=== PATIENT | female | born 1935 | race Caucasian/White ===

== ENCOUNTER 2018-07-30 09:50 | Outpatient (REF) | payer OTHER, SELFPAY ==
[2018-07-30 19:57] LABS: Anion Gap 8.8 mmol/L (3-11); BUN 36 mg/dL (7-18); CO2 28.2 mmol/L (21.0-32.0); CREATININE 1.26 mg/dL (0.55-1.02); Calcium 9.2 mg/dL (8.5-10.1); Chloride 103 mmol/L (98-107); Estimated GFR 40.76 (mL/min/1.73m2); Glucose 108 mg/dL (70-100); Potassium 3.7 mmol/L (3.5-5.1); Sodium 140 mmol/L (136-145); TSH 0.03 uIU/mL (0.358-3.74)
== END 2018-07-30 10:10 ==
LOC: NCHCN 09:50
PROVIDERS: PCP Physician Assistant Medical; Visit Provider Physician Assistant Medical
DX: I10 Essential (primary) hypertension (principal); E03.9 Hypothyroidism, unspecified
CPT/HCPCS: 80048; 84443

== ENCOUNTER 2018-09-02 10:55 | Outpatient (REF) | payer OTHER, SELFPAY ==
[2018-09-02 21:09] LABS: BUN 27 mg/dL (7-18); CREATININE 1.18 mg/dL (0.55-1.02); Calcium 9.6 mg/dL (8.5-10.1); Chloride 102 mmol/L (98-107); Estimated GFR 43.96 (mL/min/1.73m2); Glucose 91 mg/dL (70-100); Sodium 141 mmol/L (136-145); TSH 0.07 uIU/mL (0.358-3.74)
== END 2018-09-02 11:15 ==
LOC: NCHCN 10:55
PROVIDERS: PCP Physician Assistant Medical; Visit Provider Physician Assistant Medical
DX: E03.9 Hypothyroidism, unspecified (principal); N18.3 Chronic kidney disease, stage 3 (moderate)
CPT/HCPCS: 80048; 84443

== ENCOUNTER 2018-10-26 12:07 | Outpatient (REF) | payer OTHER, SELFPAY | END 2018-10-26 12:27 | LOC: NCHCN 12:07 | PROVIDERS: PCP Physician Assistant Medical; Visit Provider Physician Assistant Medical | DX: E03.9 Hypothyroidism, unspecified (principal) | CPT/HCPCS: 84443 ==

== ENCOUNTER 2019-08-30 12:29 | Outpatient (REF) | payer OTHER, SELFPAY ==
[2019-08-30 19:42] LABS: HCT 41.7 % (36.0-46.0); HGB 13.9 g/dL (12.0-15.5); Mean Corp. HGB Concentration 33.3 g/dL (32.0-36.0); Mean Corpuscular Hemoglobin 31.4 pg (27.0-33.0); Mean Corpuscular Volume 94.3 fL (80-95); Mean Platelet Volume 10.4 fL (8.0-11.0); Platelet Count 524 x1000/uL (130-400); RBC 4.42 m/cumm (4.00-5.20); RBC Distribution Width 14.7 % (11.7-14.6); White Blood Cell Count 10.77 k/cumm (4.4-10.8)
[2019-08-30 20:06] LABS: Creatine Kinase 34 U/L (26-192); Potassium 4.4 mmol/L (3.5-5.1); TSH 7.03 uIU/mL (0.36-3.74)
== END 2019-08-30 12:49 ==
LOC: NCHCN 12:29
PROVIDERS: PCP Physician Assistant Medical; Visit Provider Internal Medicine
DX: I10 Essential (primary) hypertension (principal); N18.3 Chronic kidney disease, stage 3 (moderate); K21.9 Gastro-esophageal reflux disease without esophagitis; M06.9 Rheumatoid arthritis, unspecified
CPT/HCPCS: 82550; 85027; 84132; 84443

== ENCOUNTER 2019-09-23 10:18 | Outpatient (CLI) | payer OTHER, SELFPAY ==
[2019-09-23 10:39] VITALS: BP 130/80; PULSE 78; RESP 18; TEMP 37; O2SAT 99
[2019-09-23 11:26] VITALS: PULSE 81; O2SAT 99
[2019-09-23] MEDS: Lidocaine 2% Pres-Free 5 ML VIAL IJ (11:31)
[2019-09-23] MEDS: methylPREDNISolone ACETATE 40 MG/ML VIAL IJ (11:31)
--- NOTE | 2019-09-23 12:32 | PDOC.PAIN_ITS ---
Pain Clinic Procedure Note Procedure Note Procedure Note: Right Quadratus Lumborum MUSCLE INJECTION PROCEDURE NOTE Date of Service: September 23, 2019 Patient: YOGESH HAYES Provider: Alber Aleman DO, MPH Pre-operative diagnosis: Muscle pain Post-operative diagnosis: Same COMMENTS: I reviewed Ms. Hendrix's recent note. YOGESH HAYES has been referred to the [facility] for an ultrasound guided RIGHT Quadratus Lumborum muscle injection. YOGESH was interviewed and the medical record reviewed. There were no medical, pharmacologic, radiographic or other structural contraindications to attempting a right Quadratus Lumborum muscle injection. The benefits, risks, and alternative treatments of the procedure were reviewed with YOGESH, and her voiced concerns were addressed. Once I was assured the she was completely informed about the procedure and gave informed consent, the printed consent form was signed. Standard time-out procedure was performed. YOGESH was placed in the prone position on the fluoroscopy table and automated blood pressure cuff and pulse oximeter applied. With the patient in the prone position, the posterior lumbar spine is identified by palpation. A 22G 3.5 needle was placed into the right Quadratus Lumborum muscle. Several passes were made through the muscle and 3 cc of 2% Lidocaine and 40 mg of Depomedrol was injected into the muscle. The needle was then flushed with 1 mL of preservative-free lidocaine. The needle was then removed without difficulty. The injection site was then cleaned and a bandage was placed. Lupe vital signs were stable throughout the procedure and were as recorded in the docflowsheet by the nursing staff. If given, dosages of intravenous drugs for anxiolysis and analgesia were documented in MAR. Follow up plans and appointments were discussed with the YOGESH. Post procedure instruction was given as documented in nursing documentation and having met discharge criteria, YOGESH was discharged from the [facility]. COMMENTS: No complications. F/U with our office as needed. I personally performed this entire procedure. Alber Aleman DO, MPH [facility]-subspecialty board certification in Pain Medicine Attending Physician-Pain Management
== END 2019-09-23 10:38 ==
PROVIDERS: PCP Internal Medicine; Visit Provider Preventive Medicine Occupational Medicine
DX: M79.18 Myalgia, other site (principal)
CPT/HCPCS: 20552; J1030

== ENCOUNTER 2019-11-22 14:30 | Outpatient (REF) | payer OTHER, SELFPAY ==
[2019-11-22 19:47] LABS: FREE T4 1.08 ng/dL (0.76-1.46); TSH 3.55 uIU/mL (0.36-3.74)
== END 2019-11-22 14:50 ==
LOC: NCHCN 14:30
PROVIDERS: PCP Internal Medicine; Visit Provider Internal Medicine
DX: E03.9 Hypothyroidism, unspecified (principal)
CPT/HCPCS: 84439; 84443

== ENCOUNTER → 2021-03-28 09:52 | Outpatient (BNVA) | payer OTHER, SELFPAY | PROVIDERS: PCP Internal Medicine; Referring Provider Internal Medicine; Visit Provider Psychiatry & Neurology Neurology | DX: G20 Parkinson's disease (principal); R44.0 Auditory hallucinations; I12.9 Hypertensive chronic kidney disease with stage 1 through stage 4 chronic kidney disease, or unspecified chronic kidney disease; N18.9 Chronic kidney disease, unspecified; Z86.73 Personal history of transient ischemic attack (TIA), and cerebral infarction without residual deficits | CPT/HCPCS: 99205 ==

== ENCOUNTER → 2021-06-27 10:01 | Outpatient (BNVA) | payer MEDICARE, SELFPAY | PROVIDERS: PCP Internal Medicine; Referring Provider Internal Medicine; Visit Provider Psychiatry & Neurology Neurology | DX: G20 Parkinson's disease (principal); K59.00 Constipation, unspecified; R44.0 Auditory hallucinations; F39 Unspecified mood [affective] disorder; I12.9 Hypertensive chronic kidney disease with stage 1 through stage 4 chronic kidney disease, or unspecified chronic kidney disease; N18.9 Chronic kidney disease, unspecified | CPT/HCPCS: 99214 ==

== ENCOUNTER → 2021-09-19 09:53 | Outpatient (BNVA) | payer MEDICARE, SELFPAY | PROVIDERS: PCP Internal Medicine; Referring Provider Internal Medicine; Visit Provider Psychiatry & Neurology Neurology | DX: G20 Parkinson's disease (principal); I63.9 Cerebral infarction, unspecified; F41.9 Anxiety disorder, unspecified; R41.3 Other amnesia; I12.9 Hypertensive chronic kidney disease with stage 1 through stage 4 chronic kidney disease, or unspecified chronic kidney disease; N18.9 Chronic kidney disease, unspecified | CPT/HCPCS: 99214 ==

== ENCOUNTER 2021-11-29 18:36 | Outpatient (REF) | payer MEDICARE, SELFPAY ==
--- NOTE | 2021-11-29 12:00 | SKI_PTH ---
PATIENT: Astrid Baker LOC: [facility] U#:[id number] AGE/SX: 86/F ROOM: RE11/29/[address]: Anshul Branch : [id number] BED: DIS: 11/29/2021 SPEC #: [id number] RECD: 11/29/21 18:38 STATUS: BRIDGET REUmm #: [id number] DAVIDA: 11/29/21 12:[address]: Anshul Branch DEPT: Surgical Specimen RECD BY: Shelby Nascimento Tissues: 1 - SKIN BIOPSY(SHAVE/PUNCH) Procedures: SKIN LEVEL 4 Comments: [id number]
--- OUTSIDE RECORDS SUMMARY | 2021-11-29 18:39 | XMS_ITS ---
:1935 Author Care Team Providers Name Role Phone KOBY JONES MD Primary Care Provider [phone] TOM SILVERIO MD General Surgeon [phone] Allergies Code Code System Name Reaction Severity Status Onset 222760 RxNorm Celebrex ? ? Active ? 095532 RxNorm Lipitor ? ? Active ? 7804 RxNorm Oxycodone ? ? Active ? 238464 RxNorm Oxycontin ? ? Active ? 68973 RxNorm Pravastatin ? ? Active ? Medications Name Status Start Date Stop Date ? ? acetaminophen 325 mg tablet Completed 07/03/202106/07 Take 650 mg twice a day by oral route. alprazolam 0.5 mg tablet Active ? Not blanche ilable Antacid Anti-Gas 200 mg-200 mg-20 mg/5 mL oral suspension Comple radha 02/09/2019 08/03/2019 Take 30 mL every 6 hours by oral route as needed. aripiprazole 2 mg tablet Active 10/27/2021 Not blanche ilable 0.5 tablets every day by oral route at bedtime. aspirin 325 mg tablet Completed 02/09/2019 07/03/2021 Take 1 tablet every day by oral route. aspirin 81 mg chewable tablet Active 10/27/2021 No t available Chew 1 tablet every day by oral route. atorvastatin 40 mg tablet Active 10/27/2021 Not av ailable Take 1 tablet every day by oral route for 30 days. azithromycin 250 mg tablet Completed ? 02/[address] - ER 3 mg Completed ? 10/27/19 22 capsule,delayed,extended release Calcium 600 + D(3) 600 mg-10 mcg (400 unit) tablet Active 10/27/2021 Not available Take 1 tablet twice a day by oral route. carbidopa 25 mg-levodopa 100 mg tablet Active Not available Take 1 tablet 3 times a day by oral route before meals. carvedilol 12.5 mg tablet Active ? Not av ailable cephalexin 500 mg capsule Completed ? 2021 Take 1 capsule every 8 hours by oral route. Cholestyramine Light 4 gram oral powder Completed 07/03/20 21 07/09/2021 Take 1 scoop every day by oral route for 30 days. clopidogrel 75 mg tablet Active 10/27/2021 Not blanche ilable Take 1 tablet every 24 hours by oral route for 30 days. colchicine 0.6 mg capsule Active 10/27/2021 Not av ailable Take 1 capsule every day by oral route as needed. docusate sodium 100 mg capsule Completed 07/03/2021 0 10/27/2021 Take 1 capsule twice a day by oral route. duloxetine 30 mg Completed ? 02/09/2019 capsule,delayed release duloxetine 60 mg capsule,delayed release Active 022 Not available 2 capsules every day by oral route in the morning. Fluzone High-Dose (PF) Completed ? 0 06/01/2020 180 mcg/0.5 mL intramuscular syringe Fluzone High-Dose Quad (PF) 240 mcg/0.7 mL IM syringe Co mpleted ? 07/03/2021 USE DIRECTED folic acid 800 mcg tablet Completed ? 2018 Take 1 tablet every day by oral route. gabapentin 100 mg capsule Completed ? 2020 Take 2 capsules twice a day by oral route. gabapentin 600 mg tablet Completed ? 020 Take 1 tablet twice a day by oral route. guaifenesin 200 mg/5 mL oral liquid Completed ? 07/20/2021 Take 10 mL every 6 hours by oral route as needed. hydrochlorothiazide 12.5 mg Completed ? 04/2019 tablet hydrocodone 10 Completed ? 06/01/2020 mg-acetaminophen 325 mg tablet hydrocodone 5 mg-acetaminophen 325 mg tablet Active Not available Take 1 tablet twice a day by oral route as needed. hydrocodone 7.5 mg-acetaminophen 300 mg tablet Completed ? 07/20/2021 Take 1 tablet every 6 hours by oral route as needed. hydrocodone 7.5 mg-acetaminophen 325 mg tablet Completed ? 10/27/2021 Take 1 tablet every 6 hours by oral route. hydromorphone 2 mg tablet Completed ? 2018 hydroxyurea 500 mg capsule Active 10/27/2021 Not a vailable Take 1 capsule every day by oral route as directed. ibuprofen 200 mg capsule Completed ? 020 Take 2 capsules every 6 hours by oral route as needed. Imodium A-D 2 mg tablet Completed ? 08/03/20 19 TAKE 2 TABLETS (4 MG) BY ORAL ROUTE AFT ER 1ST LOOSE STOOL AND 1 TABLET (2 MG) AFTER EACH NEXT BOWEL MOVEMENT; DO NOT EXCEED 4 TAB IN 24HRS Lasix 20 mg tablet Completed ? 10/27/2021 Take 1 tablet every day by oral route in the morning. levothyroxine 100 mcg tablet Completed ? 04/2019 levothyroxine 112 mcg tablet Completed ? 04/2019 levothyroxine 75 mcg tablet Completed ? 06/07 levothyroxine 88 mcg tablet Active 10/27/2021 Not available Take 1 tablet every day by oral route. lidocaine 4 % topical patch Completed 07/03/202107/06 Apply 1 patch every day by topical route as needed. Lidoderm 5 % topical patch Completed 02/09/201908/03 Apply 1 patch every 24 hours by transdermal route. Remove after 12 hours. lorazepam 1 mg tablet Completed ? 06/01/2020 losartan 100 mg tablet Completed ? 9 Lovenox 40 mg/0.4 mL subcutaneous syringe Completed ? 10/27/2021 Inject 0.4 mL every day by subcutaneous route for 15 days. magnesium oxide 400 mg (241.3 mg magnesium) tablet Completed 02/09/2019 08/03/2019 Take 1 tablet every day by oral route. melatonin Completed ? 07/03/2021 4 tabs at HS melatonin 3 mg tablet Active 10/27/2021 Not availa ble Take 4 tablets every day by oral route at bedtime. Myrbetriq 25 mg tablet,extended release Completed 07/03/20 21 10/27/2021 Take 1 tablet every day by oral route in the morning. Narcan 4 mg/actuation nasal spray Completed ? 07/03/2021 Take 1 spray as needed by nasal route. ofloxacin 0.3 % eye drops Completed ? 2018 pantoprazole 20 mg Completed ? 02/09/2019 tablet,delayed release pantoprazole 40 mg tablet,delayed release Active 2021 Not available Take 1 tablet every other day by oral route in the morning. Percocet 5 mg-325 mg tablet Completed 07/03/2021 1001/2021 Take 1 tablet every 6 hours by oral route as needed for 7 days. polyethylene glycol 3350 17 gram oral powder packet Completed 02/09/2019 08/03/2019 Take 17 g every 24 hours by oral route as needed. prednisolone acetate 1 % eye Completed ? 04/2019 drops,suspension prednisone 20 mg tablet Completed ? 02/10/20 PreserVision AREDS-2 Completed 02/09/2019 07/03/2021 1 capsule by mouth twice a day PreserVision AREDS-2 250 mg-90 mg-40 mg-1 mg capsule Active 10/27/2021 Not available Take 1 capsule twice a day by oral route. Senna Lax 8.6 mg tablet Active 10/27/2021 Not avai lable Take 2 tablets every other day by oral route as needed. sulfamethoxazole 800 Completed ? 08/18/2019 mg-trimethoprim 160 mg tablet Tylenol Extra Strength 500 mg tablet Completed 07/03/2021 10/27/2021 Take 2 tablets every 6 hours by oral route. Vicodin 5 mg-300 mg tablet Completed ? 02/09 Take 1 tablet every 4 hours by oral route. Vitamin B-12 1,000 mcg tablet Active 10/27/2021 N ot available Take 1 tablet every day by oral route. Voltaren Arthritis Pain 1 % topical gel Active 10/27/19 Not available Apply 2 g 4 times a day by topical route as needed. Notes: med rec completed with he alth direct 10/25/21 JLD Problems Name Status Onset Date Source ? Hypothyroidism Active 02/02/2019 ? Depressive Disorder Active 02/02/2019 ? Essential Hypertension Active 02/02/2019 ? Collagenous Colitis Active 02/02/2019 ? Chronic Kidney Disease Active 02/02/2019 ? Spinal Stenosis of Lumbar Region Active 02/02/2019 ? Spondylolisthesis Active 02/02/2019 ? Gastroesophageal Reflux Disease Active 02/09/2019 ? Compression Fracture of Lumbosacral Active 02/09/2019 ? Spine History of Cerebrovascular Accident Active 02/09/2019 ? Hypokalemia Active 08/03/2019 ? Hypertensive Disorder Active 08/03/2019 ? Cerebrovascular Accident Active 08/03/2019 ? Umbilical Hernia Active 08/03/2019 ? Chronic Kidney Disease Stage 3 Active 08/03/2019 ? Cutaneous Horn Active 08/03/2019 ? Rheumatoid Arthritis Active 08/03/2019 ? 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 Chronic Cough Active 08/03/2019 ? Anxiety Active 05/09/2020 ? Lumbar Radiculopathy Active 05/09/2020 ? Greater Trochanteric Pain Syndrome Active 05/09/2020 ? Closed Fracture of Neck of Femur Active 07/03/2021 ? Parkinson's Disease Active 10/25/2021 ? Closed Fracture of Lower End of Humerus Active ? History Notes: chronic back pain Procedures Date Name Performed by ? 06/29/2021 Primary Cemented Hemiarthroplasty of Hip Information not available Notes: Right hip for subcapital hip f x 06/26/2020 Hernia Repair Information not avai lable Notes: umbilical hernia 10/06/2015 Elbow Surgery Information not avai lable Notes: ORIF right 12/2017 per [facility] [place] ? Colonoscopy Information not avai lable Notes: done in [place] ? Cataract Surgery Information not avai lable Notes: per [facility] [place] ? Knee Replacement Information not avai lable Notes: right, per [facility] [place] ? Back Surgery Information not avai lable ? Tubal Ligation Information not avai lable ? Appendectomy Information not avai lable Results Lab Results Date Name Specimen Result Interpretation Description Value Range Status Address ? 11/29/2021 CBC W/ Auto BLD ? Wbc 7.6 10*3/uL 5.0-10.0 F inal North Diff 10*3/uL [facility] (Internal) : [address] ? ? BLD ? Rbc 4.21 10*6/uL 4.10-5.30 Final N orth 10*6/uL [facility] (Internal) : [address] ? ? BLD ? Hgb 12.3 g/dL 12.0-16.0 Final Nort h g/dL [facility] (Internal) : [address] ? ? BLD ? Hct 38.1 % 37.0-47.0 Final [facility] (Internal) : [address] ? ? BLD ? Mcv 90.5 fL 80.0-96.0 Final [facility] (Internal) : [address] [place] ? ? BLD ? Mch 29.2 pg 26.0-32.[address] [facility] (Internal) : [address] [place] ? ? BLD ? Mchc 32.3 g/dL 31.0-35.0 Final Nort h g/dL [facility] (Internal) : [address] ? ? BLD High Rdw 25.5 % 11.5-14.5 Final [facility] (Internal) : [address] [place] ? ? BLD ? Plt 393 10*3/uL 130-450 Final Nort h 10*3/uL [facility] (Internal) : [address] ? ? BLD ? Anc 4.50 10*3/uL ? Final Nort h [facility] (Internal) : [address] [place] ? ? BLD ? Nlr 2.39 0.00-3.20 Final [facility] (Internal) : [address] [place] ? ? BLD ? Neutro 59.0 % 40.0-75.0 Final [facility] (Internal) : [address] [place] ? ? BLD ? Lymph 24.6 % 20.0-50.0 Final [facility] (Internal) : [address] [place] ? ? BLD ? Kershaw 7.7 % 2.0-10.0 Final [facility] (Internal) : [address] [place] ? ? BLD High Eos 7.1 % 1.0-6.0 % Final [facility] (Internal) : [address] [place] ? ? BLD High Baso 1.3 % 0.0-1.0 % Final [facility] (Internal) : [address] [place] ? ? BLD ? Ig 0.3 % 0.0-0.9 % Final [facility] (Internal) : [address] 11/29/2021 RBC BLD ? Aniso moderate ? Final Nort h Morphology, Count Blood [facility] (Internal) : [address] ? ? BLD ? Macro occasional ? Final [facility] (Internal) : [address] ? ? BLD ? Baso rare ? [facility] [address] t 11/29/2021 CMP, Serum S ? g/r 99 mg/dL 74-106 Final North or Plasma mg/dL [facility] (Internal) : [address] ? ? S High Bun 20 mg/dL 7-18 Final [facility] mg/dL [facility] (Internal) : [address] ? ? S ? Crea 0.8 mg/dL 0.6-1.0 Final [facility] mg/dL [facility] ([facility]) : [address] ? ? S Low Ca 8.4 mg/dL 8.5-10.1 Final [facility] mg/dL [facility] ([facility]) : [address] ? ? S ? Na 139 mmol/L 136-145 Final North mmol/L [facility] (Internal) : [address] ? ? S ? K 4.1 mmol/L 3.5-5.1 Final [facility] mmol/L [facility] (Internal) : [address] ? ? S ? Cl 105 mmol/l 98-107 Final North mmol/l [facility] (Internal) : [address] ? ? S ? Tco2 28.1 mmol/L 21.0-32.0 Final No rth mmol/L [facility] (Internal) : [address] ? ? S ? Tp 6.9 g/dL 6.4-8.2 Final [facility] g/dL [facility] (Internal) : [address] ? ? S Low Alb 3.2 g/dL 3.4-5.0 Final [facility] g/dL [facility] (Internal) : [address] ? ? S ? Tbil 0.60 mg/dL 0.20-1.00 Final Nor th mg/dL [facility] (Internal) : [address] ? ? S ? Alp 99 U/L 46-116 Final [facility] U/L [facility] ([facility]) : [address] ? ? S ? Alt 23 U/L 14-59 U/L Final [facility] (Sgpt) [facility] ([facility] : [address] ? ? S ? Ast 19 U/L 15-37 U/L Final [facility] (Sgot) [facility] ([facility]) : [address] t 11/15/2021 CMP, Serum S ? g/r 104 mg/dL 74-106 Final [facility] or Plasma mg/dL [facility] (Internal) : [address] ? ? S High Bun 20 mg/dL 7-18 Final [facility] mg/dL [facility] (Internal) : [address] ? ? S ? Crea 0.9 mg/dL 0.6-1.0 Final [facility] mg/dL [facility] (Internal) : [address] ? ? S ? Ca 8.9 mg/dL 8.5-10.1 Final [facility] mg/dL [facility] (Internal) : [address] ? ? S ? Na 139 mmol/L 136-145 Final [facility] mmol/L [facility] (Internal) : [address] ? ? S ? K 3.6 mmol/L 3.5-5.1 Final [facility] mmol/L [facility] (Internal) : [address] ? ? S ? Cl 103 mmol/l 98-107 Final [facility] mmol/l [facility] (Internal) : [address] ? ? S ? Tco2 28.8 mmol/L 21.0-32.0 Final No rth mmol/L [facility] (Internal) : [address] ? ? S ? Tp 7.1 g/dL 6.4-8.2 Final [facility] g/dL [facility] (Internal) : [address] ? ? S Low Alb 3.2 g/dL 3.4-5.0 Final [facility] g/dL [facility] (Internal) : [address] ? ? S ? Tbil 0.90 mg/dL 0.20-1.[address] [facility] th mg/dL [facility] (Internal) : [address] ? ? S ? Alp 98 U/L 46-116 Final [facility] U/L [facility] (Internal) : [address] ? ? S ? Alt 17 U/L 14-59 U/L Final [facility] (Sgpt) [facility] (Internal[facility] : [address] ? ? S ? Ast 20 U/L 15-37 U/L Final [facility] (Sgot) [facility] (Internal) : [address] 11/15/2021 RBC BLD ? Aniso small ? Final [facility] Morphology, Count Blood [facility] (Internal) : [address] ? ? BLD ? Micro occasional ? Final [facility] (Internal) : [address] ? ? BLD ? Oval small ? Final [facility] (Internal) : [address] 11/15/2021 CBC W/ Auto BLD ? Wbc 7.8 10*3/uL 5.0-10.0 F inal [facility] Diff 10*3/uL [facility] (Internal) : [address] ? ? BLD ? Rbc 4.78 10*6/uL 4.10-5.30 Final N orth 10*6/uL [facility] (Internal) : [address] ? ? BLD ? Hgb 13.1 g/dL 12.0-16.0 Final Nort h g/dL [facility] (Internal) : [address] ? ? BLD ? Hct 41.3 % 37.0-47.0 Final [facility] (Internal) : [address] ? ? BLD ? Mcv 86.4 fL 80.0-96.0 Final [facility] (Internal) : [address] ? ? BLD ? Mch 27.4 pg 26.0-32.[address] [facility] (Internal) : [address] ? ? BLD ? Mchc 31.7 g/dL 31.0-35.0 Final Nort h g/dL [facility] (Internal) : [address] ? ? BLD High Rdw 24.1 % 11.5-14.5 Final [facility] L ab (Internal) : [address] ? ? BLD ? Plt 239 10*3/uL 130-450 Final Nort h 10*3/uL [facility] (Internal) : [address] ? ? BLD ? Anc 4.36 10*3/uL ? Final Nort h [facility] (Internal) : [address] ? ? BLD ? Nlr 2.26 0.00-3.20 Final [facility] (Internal) : [address] ? ? BLD ? Neutro 56.1 % 40.0-75.0 Final [facility] (Internal) : [address] ? ? BLD ? Lymph 24.8 % 20.0-50.0 Final [facility] (Internal) : [address] ? ? BLD ? Kershaw 8.4 % 2.0-10.0 Final [facility] L [facility] (Internal) : [address] ? ? BLD High Eos 8.1 % 1.0-6.0 % Final [facility] (Internal) : [address] ? ? BLD High Baso 2.3 % 0.0-1.0 % Final [facility] (Internal) : [address] ? ? BLD ? Ig 0.3 % 0.0-0.9 % Final [facility] (Internal) : [address] t 10/27/2021 CBC W/ Auto BLD ? Wbc 8.5 10*3/uL 5.0-10.0 F inal North Diff 10*3/uL [facility] (Internal) : [address] ? ? BLD ? Rbc 4.89 10*6/uL 4.10-5.30 Final N orth 10*6/uL [facility] (Internal) : [address] ? ? BLD ? Hgb 12.7 g/dL 12.0-16.0 Final Nort h g/dL [facility] (Internal) : [address] ? ? BLD ? Hct 40.7 % 37.0-47.0 Final [facility] L ab (Internal) : [address] ? ? BLD ? Mcv 83.2 fL 80.0-96.0 Final [facility] L ab (Internal) : [address] ? ? BLD ? Mch 26.0 pg 26.0-32.0 Final [facility] L ab (Internal) : [address] ? ? BLD ? Mchc 31.2 g/dL 31.0-35.0 Final Nort h g/dL [facility] (Internal) : [address] ? ? BLD High Rdw 21.6 % 11.5-14.5 Final [facility] L ab (Internal) : [address] ? ? BLD ? Plt 446 10*3/uL 130-450 Final Nort h 10*3/uL [facility] L [facility] (Internal) : [address] ? ? BLD ? Anc 4.87 10*3/uL ? Final Nort h [facility] (Internal) : [address] ? ? BLD ? Nlr 2.23 0.00-3.20 Final [facility] L ab (Internal) : [address] ? ? BLD ? Neutro 57.5 % 40.0-75.0 Final [facility] L ab (Internal) : [address] ? ? BLD ? Lymph 25.8 % 20.0-50.0 Final [facility] L [facility] (Internal) : [address] ? ? BLD ? Kershaw 7.6 % 2.0-10.0 Final [facility] L ab (Internal) : [address] ? ? BLD High Eos 6.5 % 1.0-6.0 % Final [facility] L [facility] (Internal) : [address] ? ? BLD High Baso 2.2 % 0.0-1.0 % Final [facility] (Internal) : [address] ? ? BLD ? Ig 0.4 % 0.0-0.9 % Final [facility] (Internal) : [address] 10/27/2021 RBC BLD ? Aniso small ? Final [facility] Count Blood [facility] (Internal) : [address] 10/27/2021 BMP, Serum S ? g/r 101 mg/dL 74-106 Final North or Plasma mg/dL [facility] (Internal) : [address] ? ? S High Bun 26 mg/dL 7-18 Final [facility] mg/dL [facility] (Internal) : [address] ? ? S ? Crea 0.9 mg/dL 0.6-1.0 Final [facility] mg/dL [facility] (Internal) : [address] ? ? S ? Ca 9.2 mg/dL 8.5-10.1 Final [facility] mg/dL [facility] (Internal) : [address] ? ? S ? Na 140 mmol/L 136-145 Final [facility] mmol/L [facility] (Internal) : [address] ? ? S ? K 3.7 mmol/L 3.5-5.1 Final [facility] mmol/L [facility] (Internal) : [address] ? ? S ? Cl 104 mmol/l 98-107 Final [facility] mmol/l [facility] (Internal) : [address] ? ? S ? Tco2 26.7 mmol/L 21.0-32.0 Final No rth mmol/L [facility] (Internal) : [address] 10/26/2021 CBC W/ Auto BLD ? Wbc 9.2 10*3/uL 5.0-10.0 F inal [place] Diff 10*3/uL [facility] (Internal) : [address] ? ? BLD ? Rbc 4.96 10*6/uL 4.10-5.30 Final N orth 10*6/uL [facility] (Internal) : [address] ? ? BLD ? Hgb 13.0 g/dL 12.0-16.0 Final Nort h g/dL [facility] (Internal) : [address] ? ? BLD ? Hct 41.1 % 37.0-47.0 Final [facility] L [facility] (Internal) : [address] ? ? BLD ? Mcv 82.9 fL 80.0-96.0 Final [facility] L [facility] (Internal) : [address] ? ? BLD ? Mch 26.2 pg 26.0-32.[address] [facility] [address] [facility] (Internal) : [address] ? ? BLD ? Mchc 31.6 g/dL 31.0-35.0 Final Nort h g/dL [facility] (Internal) : [address] ? ? BLD High Rdw 21.2 % 11.5-14.5 Final [facility] (Internal) : [address] ? ? BLD High Plt 456 10*3/uL 130-450 Final Nort h 10*3/uL [facility] (Internal) : [address] ? ? BLD ? Anc 5.37 10*3/uL ? Final Nort h [facility] (Internal) : [address] ? ? BLD ? Nlr 2.38 0.00-3.20 Final [facility] L [facility] (Internal) : [address] ? ? BLD ? Neutro 58.3 % 40.0-75.0 Final [facility] (Internal) : [address] ? ? BLD ? Lymph 24.5 % 20.0-50.0 Final [facility] (Internal) : [address] ? ? BLD ? Kershaw 8.9 % 2.0-10.0 Final [facility] (Internal) : [address] [place] ? ? BLD High Eos 6.1 % 1.0-6.0 % Final [facility] (Internal) : [address] ? ? BLD High Baso 2.0 % 0.0-1.0 % Final [facility] (Internal) : [address] ? ? BLD ? Ig 0.2 % 0.0-0.9 % Final [facility] (Internal) : [address] 10/26/2021 BMP, Serum S ? g/r 103 mg/dL 74-106 Final North or Plasma mg/dL [facility] (Internal) : [address] ? ? S High Bun 25 mg/dL 7-18 Final North mg/dL [facility] (Internal) : [address] ? ? S High Crea 1.1 mg/dL 0.6-1.0 Final [facility] mg/dL [facility] (Internal) : [address] ? ? S ? Ca 9.2 mg/dL 8.5-10.1 Final North mg/dL [facility] (Internal) : [address] ? ? S ? Na 140 mmol/L 136-145 Final North mmol/L [facility] (Internal) : [address] ? ? S ? K 4.0 mmol/L 3.5-5.1 Final North mmol/L [facility] (Internal) : [address] ? ? S ? Cl 102 mmol/l 98-107 Final North mmol/l [facility] (Internal) : [address] ? ? S ? Tco2 28.2 mmol/L 21.0-32.0 Final No rth mmol/L [facility] (Internal) : [address] 10/26/2021 TSH, Serum S High Tsh 4.91 uIU/mL 0.36-3.74 F inal North or Plasma uIU/mL [facility] (Internal) : [address] 10/26/2021 RBC BLD ? Aniso moderate ? Final Nort h Morphology, Count ry Blood Hospital L ab (Internal) : [address] ? ? BLD ? Micro rare ? Final [facility] L ab (Internal) : [address] ? ? BLD ? Oval occasional ? Final [facility] L ab (Internal) : [address] 10/25/2021 BMP, Serum S ? g/r 106 mg/dL 74-106 Final North or Plasma mg/dL [facility] (Internal) : [address] ? ? S High Bun 20 mg/dL 7-18 Final North mg/dL [facility] (Internal) : [address] ? ? S ? Crea 0.9 mg/dL 0.6-1.0 Final North mg/dL [facility] (Internal) : [address] ? ? S ? Ca 8.8 mg/dL 8.5-10.1 Final [facility] mg/dL [facility] (Internal) : [address] ? ? S ? Na 141 mmol/L 136-145 Final [facility] mmol/L [facility] (Internal) : [address] ? ? S ? K 4.0 mmol/L 3.5-5.1 Final [facility] mmol/L [facility] (Internal) : [address] ? ? S ? Cl 105 mmol/l 98-107 Final [place] mmol/l [facility] (Internal) : [address] ? ? S ? Tco2 27.6 mmol/L 21.0-32.0 Final No rth mmol/L [facility] (Internal) : [address] 10/25/2021 CBC W/ Auto BLD ? Wbc 9.2 10*3/uL 5.0-10.0 F inal [place] Diff 10*3/uL [facility] (Internal) : [address] ? ? BLD ? Rbc 5.09 10*6/uL 4.10-5.30 Final N orth 10*6/uL [facility] (Internal) : [address] ? ? BLD ? Hgb 13.4 g/dL 12.0-16.0 Final Nort h g/dL [facility] L [facility] (Internal) : [address] ? ? BLD ? Hct 42.5 % 37.0-47.0 Final [facility] Hospital L ab (Internal) : [address] [place] ? ? BLD ? Mcv 83.5 fL 80.0-96.0 Final [facility] Hospital L ab (Internal) : [address] ? ? BLD ? Mch 26.3 pg 26.0-32.0 Final [facility] Hospital L ab (Internal) : [address] ? ? BLD ? Mchc 31.5 g/dL 31.0-35.0 Final Nort h g/dL [facility] Hospital L ab (Internal) : [address] ? ? BLD High Rdw 21.1 % 11.5-14.5 Final [facility] Hospital L ab (Internal) : [address] ? ? BLD High Plt 464 10*3/uL 130-450 Final Nort h 10*3/uL [facility] Hospital L ab (Internal) : [address] ? ? BLD ? Anc 5.34 10*3/uL ? Final Nort h [facility] Hospital L ab (Internal) : [address] ? ? BLD ? Nlr 2.45 0.00-3.20 Final [facility] L ab (Internal) : [address] ? ? BLD ? Neutro 58.0 % 40.0-75.0 Final [facility] L ab (Internal) : [address] ? ? BLD ? Lymph 23.6 % 20.0-50.0 Final [facility] Hospital L ab (Internal) : [address] ? ? BLD ? Kershaw 7.9 % 2.0-10.0 Final [facility] L ab (Internal) : [address] ? ? BLD High Eos 7.8 % 1.0-6.0 % Final [facility] L ab (Internal) : [address] ? ? BLD High Baso 2.4 % 0.0-1.0 % Final [facility] L ab (Internal) : [address] t ? ? BLD ? Ig 0.3 % 0.0-0.9 % Final [facility] L ab (Internal) : [address] 10/25/2021 RBC BLD ? Aniso moderate ? Final Nort h Morphology, Count Blood Hospital L ab (Internal) : [address] 10/25/2021 Prothrombin BLD ? Pt 11.6 S 9.1-11.[address] [facility] L ab (Internal) : [address] t ? ? BLD ? Inr 1.1 ? Final [facility] L ab (Internal) : [address] 10/25/2021 Partial BLD ? APTT 30 s 22-35 s Final Nort h Thromboplas (Op) Count [facility] Hospital Lab (Internal) : [address] 10/25/2021 Urinalysis, UR ? UA-color straw pale Final [facility] Dipstick, yellow [facility] Hospital L ab Micro (Internal) : [address] t ? ? UR ? UA-appea clear clear Final [facility] L ab (Internal) : [address] t ? ? UR ? UA-spec 1.010 1.003-1.[address] L ab (Internal) : [address] t ? ? UR ? UA-pH 7.0 [pH] 4.6-8.0 Final Diamond [pH] [facility] L ab (Internal) : [address] t ? ? UR ? UA-leuk negative negative Final Nort h Est [facility] L ab (Internal) : [address] t ? ? UR ? UA-nitri negative negative Final Nor th te [facility] Hospital L ab (Internal) : [address] t ? ? UR ? UA-prot negative negative Final Nort h [facility] L ab (Internal) : [address] t ? ? UR ? UA-gluc negative negative Final Nort h [facility] L ab (Internal) : [address] t ? ? UR ? UA-keton negative negative [facility] ([facility]) : [address] t ? ? UR ? UA-urobi normal normal Final [facility] Hospital L ab (Internal) : [address] t ? ? UR ? UA-bili negative negative Final Nort [facility] Hospital L ab (Internal) : [address] t ? ? UR ? UA-blood negative negative Final Nor [facility] Hospital L ab (Internal) : [address] t 10/25/2021 SARS CoV 2 SWAB ? Covid neymar-cov-2 neymar-cov-2 Fin al [facility] RNA PCR not detected not Cou ntry (COVID-19), Screen detected Hos pital Lab QL, (Internal) : octave board assembler-PCR, [address] Specimen 10/25/2021 EKG Done by ? No ? ? ? N orth ED observati [facility] ab recorded. ([employer]): [address] t 10/25/2021 Hepatic S ? Tbil 0.50 mg/dL 0.20-1.00 Final [facility] Function mg/dL [facility] Hospital L ab Serum (Internal) : [address] t ? ? S ? Dbil 0.13 mg/dL 0.00-0.20 Final [facility] mg/dL [facility] Hospital L ab (Internal) : [address] t ? ? S ? Alp 99 U/L 46-116 Final Diamond U/L [facility] L ab (Internal) : [address] t ? ? S ? Alt 27 U/L 14-59 U/L Final [facility] (Sgpt) [facility] Hospital L ab (Internal) : [address] t ? ? S ? Ast 19 U/L 15-37 U/L Final [facility] (Sgot) [facility] Hospital L ab (Internal) : [address] t ? ? S ? Ggt 51 U/L 5-55 U/L Final [facility] Hospital L ab (Internal) : [address] t ? ? S ? Tp 7.4 g/dL 6.4-8.2 Final Diamond g/dL [facility] Hospital L ab (Internal) : [address] t ? ? S ? Alb 3.4 g/dL 3.4-5.0 Final North g/dL [facility] Hospital L ab (Internal) : [address] t 10/18/2021 CBC W/ Auto BLD ? Wbc 8.3 10*3/uL 5.0-10.0 F inal [place] Diff 10*3/uL [facility] Hospital L ab (Internal) : [address] t ? ? BLD ? Rbc 5.14 10*6/uL 4.10-5.30 Final N orth 10*6/uL [facility] Hospital L ab (Internal) : [address] t ? ? BLD ? Hgb 13.3 g/dL 12.0-16.0 Final Nort h g/dL [facility] L ab (Internal) : [address] t ? ? BLD ? Hct 42.4 % 37.0-47.0 Final [facility] L ab (Internal) : [address] t ? ? BLD ? Mcv 82.5 fL 80.0-96.0 Final [facility] L ab (Internal) : [address] t ? ? BLD Low Mch 25.9 pg 26.0-32.[address] [facility] L ab (Internal) : [address] t ? ? BLD ? Mchc 31.4 g/dL 31.0-35.0 Final Nort h g/dL [facility] L ab (Internal) : [address] t ? ? BLD High Rdw 19.2 % 11.5-14.5 Final [facility] L ab (Internal) : [address] t ? ? BLD ? Plt 413 10*3/uL 130-450 Final Nort h 10*3/uL [facility] Hospital L ab (Internal) : [address] t ? ? BLD ? Anc 4.44 10*3/uL ? Final Nort h [facility] L ab (Internal) : [address] t ? ? BLD ? Nlr 1.94 0.00-3.20 Final [facility] L ab (Internal) : [address] t ? ? BLD ? Neutro 53.6 % 40.0-75.0 Final [facility] (Internal) : [address] t ? ? BLD ? Lymph 27.7 % 20.0-50.0 Final [facility] L [facility] (Internal) : [address] t ? ? BLD ? Kershaw 7.9 % 2.0-10.0 Final North % [facility] Hospital L ab (Internal) : [address] t ? ? BLD High Eos 8.2 % 1.0-6.0 % Final [facility] Hospital L ab (Internal) : [address] t ? ? BLD High Baso 2.4 % 0.0-1.0 % Final [facility] Hospital L ab (Internal) : [address] t ? ? BLD ? Ig 0.2 % 0.0-0.9 % Final [facility] Hospital L ab (Internal) : [address] t 10/18/2021 CMP, Serum S ? g/r 99 mg/dL 74-106 Final North or Plasma mg/dL [facility] L ab (Internal) : [address] t ? ? S High Bun 21 mg/dL 7-18 Final [facility] mg/dL [facility] L ab (Internal) : [address] t ? ? S ? Crea 0.9 mg/dL 0.6-1.0 Final [facility] mg/dL [facility] L ab (Internal) : [address] t ? ? S ? Ca 9.0 mg/dL 8.5-10.1 Final [facility] mg/dL [facility] L ab (Internal) : [address] t ? ? S ? Na 143 mmol/L 136-145 Final [facility] mmol/L [facility] L ab (Internal) : [address] t ? ? S ? K 3.8 mmol/L 3.5-5.1 Final [facility] mmol/L [facility] L ab (Internal) : [address] t ? ? S ? Cl 106 mmol/l 98-107 Final North mmol/l [facility] Hospital L ab (Internal) : [address] t ? ? S ? Tco2 29.9 mmol/L 21.0-32.0 Final No rth mmol/L [facility] L ab (Internal) : [address] t ? ? S ? Tp 7.3 g/dL 6.4-8.2 Final Diamond g/dL [facility] L ab (Internal) : [address] t ? ? S Low Alb 3.3 g/dL 3.4-5.0 Final [facility] g/dL [facility] L ab (Internal) : [address] t ? ? S ? Tbil 0.50 mg/dL 0.20-1.[address] [facility] th mg/dL [facility] L ab (Internal) : [address] t ? ? S ? Alp 110 U/L 46-116 Final [facility] U/L [facility] L ab (Internal) : [address] t ? ? S ? Alt 18 U/L 14-59 U/L Final [facility] (Sgpt) [facility] L ab (Internal) : [address] t ? ? S ? Ast 19 U/L 15-37 U/L Final [facility] (Sgot) [facility] L ab (Internal) : [address] 10/18/2021 RBC BLD ? Aniso small ? Final [facility] Morphology, Count Blood Hospital L ab (Internal) : [address] t ? ? BLD ? Schist occasional ? Final [facility] L ab (Internal) : [address] 10/11/2021 CBC W/ Auto BLD ? Wbc 8.9 10*3/uL 5.0-10.0 F inal [facility] Diff 10*3/uL [facility] L ab (Internal) : [address] t ? ? BLD ? Rbc 4.89 10*6/uL 4.10-5.30 Final N orth 10*6/uL [facility] L ab (Internal) : [address] t ? ? BLD ? Hgb 12.5 g/dL 12.0-16.0 Final Nort h g/dL [facility] L ab (Internal) : [address] t ? ? BLD ? Hct 40.8 % 37.0-47.0 Final [facility] L ab (Internal) : [address] t ? ? BLD ? Mcv 83.4 fL 80.0-96.0 Final [facility] Hospital L ab (Internal) : [address] ? ? BLD Low Mch 25.6 pg 26.0-32.0 Final [facility] Hospital L ab (Internal) : [address] ? ? BLD Low Mchc 30.6 g/dL 31.0-35.0 Final Nort h g/dL [facility] Hospital L ab (Internal) : [address] ? ? BLD High Rdw 17.4 % 11.5-14.5 Final [facility] Hospital L ab (Internal) : [address] ? ? BLD High Plt 476 10*3/uL 130-450 Final Nort h 10*3/uL [facility] Hospital L ab (Internal) : [address] t ? ? BLD ? Anc 4.98 10*3/uL ? Final Nort h [facility] Hospital L ab (Internal) : [address] ? ? BLD ? Nlr 2.19 0.00-3.20 Final [facility] L ab (Internal) : [address] t ? ? BLD ? Neutro 55.7 % 40.0-75.0 Final [facility] L ab (Internal) : [address] t ? ? BLD ? Lymph 25.4 % 20.0-50.0 Final [facility] L ab (Internal) : [address] t ? ? BLD ? Kershaw 7.3 % 2.0-10.0 Final [facility] L ab (Internal) : [address] ? ? BLD High Eos 9.3 % 1.0-6.0 % Final [facility] Hospital L ab (Internal) : [address] t ? ? BLD High Baso 2.1 % 0.0-1.0 % Final [facility] L ab (Internal) : [address] t ? ? BLD ? Ig 0.2 % 0.0-0.9 % Final [facility] L ab (Internal) : [address] t 10/11/2021 CMP, Serum S ? g/r 99 mg/dL 74-106 Final [facility] or Plasma mg/dL [facility] L [facility] (Internal) : [address] t ? ? S High Bun 27 mg/dL 7-18 Final [facility] mg/dL [facility] L ab (Internal) : [address] t ? ? S ? Crea 0.9 mg/dL 0.6-1.0 Final [facility] mg/dL [facility] L ab (Internal) : [address] t ? ? S ? Ca 8.7 mg/dL 8.5-10.1 Final [facility] mg/dL [facility] L ab (Internal) : [address] t ? ? S ? Na 142 mmol/L 136-145 Final [facility] mmol/L [facility] L [facility] (Internal) : [address] t ? ? S ? K 4.4 mmol/L 3.5-5.1 Final [facility] mmol/L [facility] L [facility] (Internal) : [address] t ? ? S ? Cl 106 mmol/l 98-107 Final [facility] mmol/l [facility] L ab (Internal) : [address] t ? ? S ? Tco2 26.7 mmol/L 21.0-32.0 Final No rth mmol/L [facility] L ab (Internal) : [address] t ? ? S ? Tp 6.5 g/dL 6.4-8.2 Final [facility] g/dL [facility] L [facility] (Internal) : [address] t ? ? S Low Alb 3.2 g/dL 3.4-5.0 Final [facility] g/dL [facility] L [facility] (Internal) : [address] t ? ? S ? Tbil 0.50 mg/dL 0.20-1.00 Final Nor th mg/dL [facility] L ab (Internal) : [address] t ? ? S ? Alp 109 U/L 46-116 Final [facility] U/L [facility] L ab (Internal) : [address] t ? ? S ? Alt 22 U/L 14-59 U/L Final [facility] (Sgpt) [facility] L [facility] (Internal) : [address] t ? ? S Low Ast 14 U/L 15-37 U/L Final [facility] (Sgot) [facility] Hospital L ab (Internal) : [address] 10/11/2021 RBC BLD ? Aniso small ? Final [facility] Morphology, Count ry Blood Hospital L ab (Internal) : [address] 09/01/2021 CBC W/ Auto BLD High Wbc 13.0 10*3/uL 5.0-10.0 Final [facility] Diff 10*3/uL [facility] L ab (Internal) : [address] t ? ? BLD ? Rbc 5.08 10*6/uL 4.10-5.30 Final N orth 10*6/uL [facility] L ab (Internal) : [address] t ? ? BLD ? Hgb 13.9 g/dL 12.0-16.0 Final Nort h g/dL [facility] Hospital L ab (Internal) : [address] t ? ? BLD ? Hct 44.1 % 37.0-47.0 Final [facility] Hospital L ab (Internal) : [address] t ? ? BLD ? Mcv 86.8 fL 80.0-96.0 Final [facility] Hospital L ab (Internal) : [address] t ? ? BLD ? Mch 27.4 pg 26.0-32.0 Final [facility] Hospital L ab (Internal) : [address] t ? ? BLD ? Mchc 31.5 g/dL 31.0-35.0 Final Nort h g/dL [facility] Hospital L ab (Internal) : [address] t ? ? BLD High Rdw 14.9 % 11.5-14.5 Final [facility] Hospital L ab (Internal) : [address] t ? ? BLD CRITICA Plt 836 10*3/uL 130-450 Final Nor th L HIGH 10*3/uL [facility] Hospital L ab (Internal) : [address] t ? ? BLD ? Anc 7.68 10*3/uL ? Final Nort h [facility] Hospital L ab (Internal) : [address] t ? ? BLD ? Nlr 2.93 0.00-3.20 Final [facility] Hospital L ab (Internal) : [address] ? ? BLD ? Neutro 59.1 % 40.0-75.0 Final Diamond % [facility] Hospital L ab (Internal) : [address] t ? ? BLD ? Lymph 20.2 % 20.0-50.0 Final North % [facility] Hospital L ab (Internal) : [address] t ? ? BLD ? Kershaw 9.5 % 2.0-10.0 Final [facility] % [facility] Hospital L ab (Internal) : [address] t ? ? BLD High Eos 9.2 % 1.0-6.0 % Final [facility] Hospital L ab (Internal) : [address] t ? ? BLD High Baso 1.6 % 0.0-1.0 % Final [facility] Hospital L ab (Internal) : [address] ? ? BLD ? Ig 0.4 % 0.0-0.9 % Final [facility] Hospital L ab (Internal) : [address] t 09/01/2021 BMP, Serum S High g/r 114 mg/dL 74-106 Final [facility] or Plasma mg/dL [facility] L ab (Internal) : [address] ? ? S High Bun 20 mg/dL 7-18 Final [facility] mg/dL [facility] L ab (Internal) : [address] t ? ? S ? Crea 0.8 mg/dL 0.6-1.0 Final [facility] mg/dL [facility] L ab (Internal) : [address] t ? ? S ? Ca 9.3 mg/dL 8.5-10.1 Final [facility] mg/dL [facility] L ab (Internal) : [address] t ? ? S ? Na 139 mmol/L 136-145 Final [facility] mmol/L [facility] L ab (Internal) : [address] ? ? S ? K 3.9 mmol/L 3.5-5.1 Final [facility] mmol/L [facility] L ab (Internal) : [address] t ? ? S ? Cl 106 mmol/l 98-107 Final [facility] mmol/l [facility] L ab (Internal) : [address] t ? ? S ? Tco2 23.9 mmol/L 21.0-32.0 Final No rth mmol/L [facility] L ab (Internal) : [address] t 09/01/2021 Prothrombin BLD High Pt 12.1 S 9.1-11.7 Final [facility] S [facility] L ab (Internal) : [address] t ? ? BLD ? Inr 1.2 ? Final [facility] L ab (Internal) : [address] t 09/01/2021 Partial BLD ? APTT 28 s 22-35 s Final Nort h Thromboplas (Op) Count ry [facility] Hospital Lab (Internal) : [address] t 09/01/2021 SARS CoV 2 SWAB ? Covid neymar-cov-2 neymar-cov-2 Fin al [facility] RNA PCR not detected not Cou ntry (COVID-19), Screen detected Hos pital Lab QL, (Internal) : octave board assembler-PCR, [address], N ewport Specimen 07/18/2021 CBC W/ Auto BLD High Wbc 11.9 10*3/uL 5.0-10.0 Final [facility] Diff 10*3/uL [facility] L ab (Internal) : [address] t ? ? BLD Low Rbc 3.77 10*6/uL 4.10-5.30 Final N orth 10*6/uL [facility] L ab (Internal) : [address] t ? ? BLD Low Hgb 11.3 g/dL 12.0-16.0 Final Nort h g/dL [facility] L ab (Internal) : [address] t ? ? BLD Low Hct 36.1 % 37.0-47.0 Final [facility] L ab (Internal) : [address] t ? ? BLD ? Mcv 95.8 fL 80.0-96.0 Final [facility] L ab (Internal) : [address] ? ? BLD ? Mch 30.0 pg 26.0-32.[address] [facility] L ab (Internal) : [address] t ? ? BLD ? Mchc 31.3 g/dL 31.0-35.0 Final Nort h g/dL [facility] Hospital L ab (Internal) : [address] ? ? BLD High Rdw 15.0 % 11.5-14.5 Final [facility] L ab (Internal) : [address] t ? ? BLD CRITICA Plt 866 smear 130-450 Final [facility] L HIGH reviewed by 10*3/uL Coun try tech 10*3/uL Hosp ital Lab (Internal) : [address] t ? ? BLD ? Anc 8.27 10*3/uL ? Final Nort h [facility] Hospital L ab (Internal) : [address] t ? ? BLD High Nlr 4.81 0.00-3.20 Final [facility] L ab (Internal) : [address] ? ? BLD ? Neutro 69.2 % 40.0-75.0 Final [facility] L ab (Internal) : [address] t ? ? BLD Low Lymph 14.4 % 20.0-50.0 Final [facility] L ab (Internal) : [address] ? ? BLD ? Kershaw 8.8 % 2.0-10.0 Final [facility] L ab (Internal) : [address] ? ? BLD ? Eos 5.8 % 1.0-6.0 % Final [facility] L ab (Internal) : [address] t ? ? BLD High Baso 1.3 % 0.0-1.0 % Final [facility] L ab (Internal) : [address] t ? ? BLD ? Ig 0.5 % 0.0-0.9 % Final [facility] Hospital L ab (Internal) : [address] 07/18/2021 Pathology BLD ? Smear see comment ? Final [facility] Review, Review [facility] Hospital L ab (Internal) : [address] 07/13/2021 CBC W/ Auto BLD High Wbc 12.7 10*3/uL 5.0-10.0 Final North Diff 10*3/uL [facility] Hospital L ab (Internal) : [address] ? ? BLD Low Rbc 3.58 10*6/uL 4.10-5.30 Final N orth 10*6/uL [facility] Hospital L ab (Internal) : [address] ? ? BLD Low Hgb 10.8 g/dL 12.0-16.0 Final Nort h g/dL [facility] Hospital L ab (Internal) : [address] ? ? BLD Low Hct 34.5 % 37.0-47.0 Final [facility] L ab (Internal) : [address] ? ? BLD High Mcv 96.4 fL 80.0-96.0 Final [facility] L ab (Internal) : [address] t ? ? BLD ? Mch 30.2 pg 26.0-32.[address] [facility] L ab (Internal) : [address] t ? ? BLD ? Mchc 31.3 g/dL 31.0-35.0 Final Nort h g/dL [facility] L ab (Internal) : [address] t ? ? BLD High Rdw 15.3 % 11.5-14.5 Final [facility] L ab (Internal) : [address] t ? ? BLD CRITICA Plt 884 10*3/uL 130-450 Final Nor th L HIGH 10*3/uL [facility] Hospital L ab (Internal) : [address] t ? ? BLD ? Anc 8.70 10*3/uL ? Final Nort h [facility] L ab (Internal) : [address] ? ? BLD High Nlr 4.70 0.00-3.20 Final [facility] L ab (Internal) : [address] t ? ? BLD ? Neutro 68.5 % 40.0-75.0 Final [facility] L ab (Internal) : [address] ? ? BLD Low Lymph 14.6 % 20.0-50.0 Final [facility] L ab (Internal) : [address] ? ? BLD ? Kershaw 7.5 % 2.0-10.0 Final [facility] L ab (Internal) : [address] ? ? BLD High Eos 7.5 % 1.0-6.0 % Final [facility] L ab (Internal) : [address] ? ? BLD High Baso 1.3 % 0.0-1.0 % Final [facility] L ab (Internal) : [address] ? ? BLD ? Ig 0.6 % 0.0-0.9 % Final [facility] L ab (Internal) : [address], Yin t 07/13/2021 RBC BLD ? Aniso occasional ? Final No rth Morphology, Count [facility] L ab (Internal) : [address] 07/02/2021 CBC W/ Auto BLD High Wbc 12.8 10*3/uL 5.0-10.0 Final [facility] Diff 10*3/uL [facility] L ab (Internal) : [address] ? ? BLD Low Rbc 3.04 10*6/uL 4.10-5.30 Final N orth 10*6/uL [facility] L ab (Internal) : [address], Yin t ? ? BLD Low Hgb 9.3 g/dL 12.0-16.0 Final Diamond g/dL [facility] L ab (Internal) : [address], [address] t ? ? BLD Low Hct 29.7 % 37.0-47.0 Final [facility] L ab (Internal) : [address], [place] t ? ? BLD High Mcv 97.7 fL 80.0-96.0 Final [facility] L ab (Internal) : [address] t ? ? BLD ? Mch 30.6 pg 26.0-32.[address] [facility] L ab (Internal) : [address] ? ? BLD ? Mchc 31.3 g/dL 31.0-35.0 Final Nort h g/dL [facility] L ab (Internal) : [address] ? ? BLD High Rdw 15.2 % 11.5-14.5 Final [facility] L ab (Internal) : [address] t ? ? BLD High Plt 578 10*3/uL 130-450 Final Nort h 10*3/uL [facility] L ab (Internal) : [address] t ? ? BLD ? Anc 7.86 10*3/uL ? Final Nort h [facility] L ab (Internal) : [address] ? ? BLD ? Nlr 3.18 0.00-3.20 Final [facility] L ab (Internal) : [address] ? ? BLD ? Neutro 61.5 % 40.0-75.0 Final [facility] L ab (Internal) : [address] ? ? BLD Low Lymph 19.3 % 20.0-50.0 Final [facility] L ab (Internal) : [address] t ? ? BLD High Kershaw 10.2 % 2.0-10.0 Final [facility] L ab (Internal) : [address] ? ? BLD High Eos 7.3 % 1.0-6.0 % Final [facility] L ab (Internal) : [address] t ? ? BLD ? Baso 0.9 % 0.0-1.0 % Final [facility] Hospital L ab (Internal) : [address] ? ? BLD ? Ig 0.8 % 0.0-0.9 % Final [facility] Hospital L ab (Internal) : [address] t 07/02/2021 BMP, Serum S High g/r 109 mg/dL 74-106 Final [place] or Plasma mg/dL [facility] L ab (Internal) : [address] ? ? S ? Bun 16 mg/dL 7-18 Final North mg/dL [facility] L ab (Internal) : [address] t ? ? S ? Crea 0.8 mg/dL 0.6-1.0 Final North mg/dL [facility] L ab (Internal) : [address] ? ? S Low Ca 7.6 mg/dL 8.5-10.1 Final North mg/dL [facility] L ab (Internal) : [address], [place] ? ? S ? Na 141 mmol/L 136-145 Final [facility] mmol/L [facility] L ab (Internal) : [address] ? ? S ? K 3.5 mmol/L 3.5-5.1 Final [facility] mmol/L [facility] L ab (Internal) : [address] t ? ? S High Cl 109 mmol/l 98-107 Final [facility] mmol/l [facility] L ab (Internal) : [address] ? ? S ? Tco2 26.0 mmol/L 21.0-32.0 Final No rth mmol/L [facility] Hospital L ab (Internal) : [address] 07/02/2021 RBC BLD ? Aniso small ? Final [facility] Morphology, Count Blood Hospital L ab (Internal) : [address] 07/02/2021 Respiratory FLUID ? Final microbiology ? Fi nal [facility] Virus Panel results [facility] L ab (Internal) : [address] 07/01/2021 CBC W/ Auto BLD High Wbc 16.0 10*3/uL 5.0-10.0 Final [facility] Diff 10*3/uL [facility] Hospital L ab (Internal) : [address] ? ? BLD Low Rbc 3.28 10*6/uL 4.10-5.30 Final N orth 10*6/uL [facility] L ab (Internal) : [address] ? ? BLD Low Hgb 10.1 g/dL 12.0-16.0 Final Nort h g/dL [facility] L ab (Internal) : [address] ? ? BLD Low Hct 32.2 % 37.0-47.0 Final Diamond % [facility] L ab (Internal) : [address] ? ? BLD High Mcv 98.2 fL 80.0-96.[address] [facility] L ab (Internal) : [address] ? ? BLD ? Mch 30.8 pg 26.0-32.[address] [facility] L ab (Internal) : [address] [address] ? ? BLD ? Mchc 31.4 g/dL 31.0-35.0 Final Nort h g/dL [facility] L ab (Internal) : [address] t ? ? BLD High Rdw 15.2 % 11.5-14.5 Final [facility] L ab (Internal) : [address] t ? ? BLD High Plt 580 10*3/uL 130-450 Final Nort h 10*3/uL [facility] L ab (Internal) : [address] t ? ? BLD ? Anc 10.62 10*3/uL ? Final [facility] L ab (Internal) : [address] t ? ? BLD High Nlr 4.37 0.00-3.20 Final [facility] L ab (Internal) : [address] t ? ? BLD ? Neutro 66.3 % 40.0-75.0 Final [facility] L ab (Internal) : [address] t ? ? BLD Low Lymph 15.1 % 20.0-50.0 Final [facility] L ab (Internal) : [address] t ? ? BLD High Kershaw 11.0 % 2.0-10.0 Final [facility] L ab (Internal) : [address] t ? ? BLD ? Eos 6.0 % 1.0-6.0 % Final [facility] L ab (Internal) : [address] t ? ? BLD ? Baso 0.9 % 0.0-1.0 % Final [facility] L ab (Internal) : [address] t ? ? BLD ? Ig 0.7 % 0.0-0.9 % Final [facility] L ab (Internal) : [address] t 07/01/2021 CMP, Serum S High g/r 109 mg/dL 74-106 Final North or Plasma mg/dL [facility] L ab (Internal) : [address] t ? ? S High Bun 19 mg/dL 7-18 Final North mg/dL [facility] L ab (Internal) : [address] t ? ? S ? Crea 0.9 mg/dL 0.6-1.0 Final [facility] mg/dL [facility] ([facility] : [address] t ? ? S Low Ca 7.3 mg/dL 8.5-10.1 Final [facility] mg/dL [facility] (Internal) : [address] t ? ? S ? Na 143 mmol/L 136-145 Final North mmol/L [facility] L ab (Internal) : [address] t ? ? S Low K 3.3 mmol/L 3.5-5.1 Final [facility] mmol/L [facility] (Internal) : [address] t ? ? S High Cl 109 mmol/l 98-107 Final [facility] mmol/l [facility] L ab (Internal) : [address] t ? ? S ? Tco2 23.7 mmol/L 21.0-32.0 Final No rth mmol/L [facility] L [facility] (Internal) : [address] t ? ? S Low Tp 5.6 g/dL 6.4-8.2 Final [facility] g/dL [facility] L [facility] (Internal) : [address] t ? ? S Low Alb 2.3 g/dL 3.4-5.0 Final [facility] g/dL [facility] (Internal) : [address] t ? ? S ? Tbil 0.50 mg/dL 0.20-1.00 Final Nor th mg/dL [facility] L [facility] (Internal) : [address] t ? ? S ? Alp 65 U/L 46-116 Final [facility] U/L [facility] L [facility] (Internal) : [address] t ? ? S Low Alt 9 U/L 14-59 U/L Final [facility] (Sgpt) [facility] L ab (Internal) : [address] t ? ? S Low Ast 14 U/L 15-37 U/L Final [facility] (Sgot) [facility] L [facility] (Internal) : [address] 07/01/2021 RBC BLD ? Aniso small ? Final [facility] Morphology, Count ry Blood Hospital L ab (Internal) : [address] 06/30/2021 CBC W/ Auto BLD High Wbc 21.2 10*3/uL 5.0-10.0 Final North Diff 10*3/uL [facility] L ab (Internal) : [address] ? ? BLD Low Rbc 3.53 10*6/uL 4.10-5.30 Final N orth 10*6/uL [facility] L ab (Internal) : [address] t ? ? BLD Low Hgb 10.8 g/dL 12.0-16.0 Final Nort h g/dL [facility] L ab (Internal) : [address] t ? ? BLD Low Hct 34.0 % 37.0-47.0 Final [facility] L ab (Internal) : [address] t ? ? BLD High Mcv 96.3 fL 80.0-96.0 Final [facility] L ab (Internal) : [address] ? ? BLD ? Mch 30.6 pg 26.0-32.[address] [facility] L ab (Internal) : [address] t ? ? BLD ? Mchc 31.8 g/dL 31.0-35.0 Final Nort h g/dL [facility] L ab (Internal) : [address] ? ? BLD High Rdw 14.8 % 11.5-14.5 Final [facility] L ab (Internal) : [address] ? ? BLD High Plt 680 10*3/uL 130-450 Final Nort h 10*3/uL [facility] L ab (Internal) : [address] 06/30/2021 TSH, Serum S ? Tsh 1.44 uIU/mL 0.36-3.74 F inal North or Plasma uIU/mL [facility] L ab (Internal) : [address] 06/30/2021 CMP, Serum S High g/r 124 mg/dL 74-106 Final North or Plasma mg/dL [facility] L ab (Internal) : [address] ? ? S Low Bun 2 mg/dL 7-18 Final North mg/dL [facility] L ab (Internal) : [address], [place] ? ? S ? Crea 1.0 mg/dL 0.6-1.0 Final [facility] mg/dL [facility] (Internal) : [address] t ? ? S Low Ca 7.4 mg/dL 8.5-10.1 Final [facility] mg/dL [facility] (Internal) : [address] t ? ? S ? Na 144 mmol/L 136-145 Final North mmol/L [facility] L ab (Internal) : [address] t ? ? S ? K 3.6 mmol/L 3.5-5.1 Final [facility] mmol/L [facility] (Internal) : [address] t ? ? S High Cl 109 mmol/l 98-107 Final [facility] mmol/l [facility] L ab (Internal) : [address] t ? ? S ? Tco2 27.4 mmol/L 21.0-32.0 Final No rth mmol/L [facility] L [facility] (Internal) : [address] t ? ? S Low Tp 5.6 g/dL 6.4-8.2 Final [facility] g/dL [facility] (Internal) : [address] t ? ? S Low Alb 2.4 g/dL 3.4-5.0 Final North g/dL [facility] L ab (Internal) : [address] t ? ? S ? Tbil 0.50 mg/dL 0.20-1.00 Final Nor th mg/dL [facility] (Internal) : [address] t ? ? S ? Alp 69 U/L 46-116 Final North U/L [facility] L [facility] (Internal) : [address] t ? ? S Low Alt <6 U/L 14-59 U/L Final [facility] (Sgpt) [facility] L [facility] (Internal) : [address] t ? ? S Low Ast 14 U/L 15-37 U/L Final [facility] (Sgot) [facility] L ab (Internal) : [address] t 06/30/2021 Differentia BLD High Polys 88 % 40-75 % Final North l, Manual, Countr y Blood Hospital L ab (Internal) : [address] t ? ? BLD ? Bands 0 % 0-5 % Final [facility] L ab (Internal) : [address] t ? ? BLD Low Lymphs 2 % 20-50 % Final [facility] L ab (Internal) : [address] t ? ? BLD ? Kershaw 10 % 2-10 % Final [facility] L ab (Internal) : [address] t ? ? BLD ? Eos 0 % 0-6 % Final [facility] L ab (Internal) : [address] t ? ? BLD ? Baso 0 % 0-1 % Final [facility] L ab (Internal) : [address] t ? ? BLD ? Atyp 0 % ? Final [facility] L ab (Internal) : [address] t ? ? BLD ? Plts, adequate adequate Final [facility] Est. [facility] L ab (Internal) : [address] t ? ? BLD ? RBC normal normal Final [facility] Morpholog [facility] L ab (Internal) : [address] t 06/30/2021 Neutrophil BLD ? Anc-manu 18.63 10*3/uL ? Final [facility] Count, [facility] Lab (Anc), (Internal) : Blood [address] t 06/30/2021 Nlr-manual BLD High Nlr - 44.00 0.00-3.20 Final [facility] Hospital L ab (Internal) : [address] t 09/08/2019 Culture UR - Final microbiology ? Final [facility] ([place] results [facility] Count), Hospital Lab Urine (Internal) : [address] t 09/08/2019 Urinalysis, UR ABNORMA UA-WBC >100 [hpf] 0-3 [hpf] Final [facility] Microscopic L Count Hospital L ab (Internal) : [address] t ? ? UR - UA-RBC 0-2 [hpf] 0-2 [hpf] Final [facility] L ab (Internal) : [address] t ? ? UR ABNORMA UA-bacte few [hpf] none seen Final [facility] L domi [hpf] [facility] L ab (Internal) : [address] t ? ? UR - UA-epith rare [hpf] none seen Final [facility] elial [hpf] [facility] ab (Internal) : [address] t ? ? UR ABNORMA UA-mucus rare [hpf] none seen Final North L [hpf] [facility] ab (Internal) : [address] t ? ? UR ABNORMA Yeast, few [hpf] none seen Final No rth L UA [hpf] [facility] ab (Internal) : [address] 09/08/2019 Urinalysis, UR - UA-color yellow pale Final [facility] Dipstick, yellow [facility] L ab Micro (Internal) : [address] t ? ? UR ABNORMA UA-appea cloudy clear Final North L r [facility] ab (Internal) : [address] t ? ? UR - UA-spec 1.020 1.003-1.0 Final North Grav 35 [facility] L ab (Internal) : [address] t ? ? UR - UA-pH 5.5 [pH] 4.6-8.0 Final [facility] [pH] [facility] ab (Internal) : [address] t ? ? UR ABNORMA UA-leuk moderate negative Final Nor th L Est [facility] ab (Internal) : [address] t ? ? UR - UA-nitri negative negative Final Nor th te [facility] ab (Internal) : [address] t ? ? UR - UA-prot negative negative Final Nort h [facility] ab (Internal) : [address] t ? ? UR - UA-gluc negative negative Final Nort [facility] ab (Internal) : [address] t ? ? UR - UA-keton negative negative Final Nor th e [facility] ab (Internal) : [address] t ? ? UR - UA-urobi normal normal Final [facility] ab (Internal) : [address] t ? ? UR - UA-bili negative negative Final Nort h [facility] ab (Internal) : [address] t ? ? UR ABNORMA UA-blood trace negative Final Nort [facility] L ab (Internal) : [address] t 04/01/2019 CBC W/ Auto BLD - Wbc 9.4 10*3/uL 5.0-10.0 F inal North Diff 10*3/uL [facility] L ab (Internal) : [address] t ? ? BLD Low Rbc 3.78 10*6/uL 4.10-5.30 Final N orth 10*6/uL [facility] L ab (Internal) : [address] t ? ? BLD - Hgb 13.0 g/dL 12.0-16.0 Final Nort h g/dL [facility] L ab (Internal) : [address] t ? ? BLD - Hct 39.0 % 37.0-47.0 Final [facility] L ab (Internal) : [address] t ? ? BLD High Mcv 103.2 fL 80.0-96.0 Final [facility] L ab (Internal) : [address] t ? ? BLD High Mch 34.4 pg 26.0-32.[address] [facility] L ab (Internal) : [address] ? ? BLD - Mchc 33.3 g/dL 31.0-35.0 Final Nort h g/dL [facility] L ab (Internal) : [address] ? ? BLD High Rdw 14.7 % 11.5-14.5 Final [facility] L ab (Internal) : [address] t ? ? BLD - Plt 322 10*3/uL 130-450 Final Nort h 10*3/uL [facility] L ab (Internal) : [address] t ? ? BLD - Anc 6.14 10*3/uL ? Final Nort [facility] L ab (Internal) : [address] t ? ? BLD - Neutro 65.4 % 40.0-75.0 Final [facility] L ab (Internal) : [address] t ? ? BLD - Lymph 20.8 % 20.0-50.0 Final [facility] (Internal) : [address] t ? ? BLD High Kershaw 10.9 % 2.0-10.0 Final North % [facility] L ab (Internal) : [address] t ? ? BLD - Eos 2.0 % 1.0-6.0 % Final [facility] L ab (Internal) : [address] t ? ? BLD - Baso 0.5 % 0.0-1.0 % Final [facility] L ab (Internal) : [address] t ? ? BLD - Ig 0.4 % 0.0-0.9 % Final [facility] L ab (Internal) : [address] 04/01/2019 BMP, Serum S - g/r 91 mg/dL 74-106 Final North or Plasma mg/dL [facility] L ab (Internal) : [address] t ? ? S - Bun 11 mg/dL 7-17 Final North mg/dL [facility] L ab (Internal) : [address] t ? ? S - Crea 0.60 mg/dL 0.52-1.04 Final Nor th mg/dL [facility] L ab (Internal) : [address] t ? ? S - Ca 9.4 mg/dL 8.4-10.2 Final North mg/dL [facility] L ab (Internal) : [address] t ? ? S - Na 141 mmol/L 137-145 Final [facility] mmol/L [facility] L ab (Internal) : [address] ? ? S Low K 3.2 mmol/L 3.5-5.1 Final North mmol/L [facility] L ab (Internal) : [address] t ? ? S - Cl 105 mmol/L 98-107 Final [facility] mmol/L [facility] L ab (Internal) : [address] t ? ? S - Tco2 26.0 mmol/L 22.0-30.0 Final No rth mmol/L [facility] L ab (Internal) : [address] 04/01/2019 RBC BLD - Macro small ? Final [facility] Morphology, Count ry Blood Hospital L ab (Internal) : [address] 04/01/2019 Urinalysis, UR - UA-color yellow pale Final [facility] Dipstick, yellow [facility] L ab Micro (Internal) : [address] t ? ? UR - UA-appea clear clear Final [facility] ab (Internal) : [address] t ? ? UR - UA-spec 1.010 1.003-1.0 Final North Grav [facility] L ab (Internal) : [address] t ? ? UR - UA-pH 6.0 [pH] 4.6-8.0 Final [facility] [pH] [facility] L ab (Internal) : [address] t ? ? UR - UA-leuk negative negative Final Nort h [facility] L ab (Internal) : [address] t ? ? UR - UA-nitri negative negative Final [facility] L ab (Internal) : [address] t ? ? UR - UA-prot negative negative Final Nort [facility] ab (Internal) : [address] t ? ? UR - UA-gluc negative negative Final [facility] ab (Internal) : [address] ? ? UR ABNORMA UA-keton trace negative Final [facility] e [facility] L ab (Internal) : [address] ? ? UR - UA-urobi normal normal Final [facility] ab (Internal) : [address] ? ? UR - UA-bili negative negative Final [facility] ab (Internal) : [address] t ? ? UR - UA-blood negative negative Final [facility] ab (Internal) : [address] 02/12/2019 BMP, Serum S - g/r 104 mg/dL 74-106 Final [facility] or Plasma mg/dL [facility] L ab (Internal) : [address] ? ? S High Bun 20 mg/dL 7-17 Final North mg/dL [facility] L ab (Internal) : [address] ? ? S - Crea 0.90 mg/dL 0.52-1.04 Final [facility] mg/dL [facility] L ab (Internal) : [address] ? ? S - Ca 9.3 mg/dL 8.4-10.2 Final North mg/dL [facility] L ab (Internal) : [address] ? ? S - Na 141 mmol/L 137-145 Final North mmol/L [facility] L ab (Internal) : [address] t ? ? S - K 3.8 mmol/L 3.5-5.1 Final North mmol/L [facility] L ab (Internal) : [address] t ? ? S - Cl 106 mmol/L 98-107 Final North mmol/L [facility] L ab (Internal) : [address] t ? ? S - Tco2 30.0 mmol/L 22.0-30.0 Final No rth mmol/L [facility] L ab (Internal) : [address] 02/09/2019 Cbc BLD - Wbc 6.7 10*3/uL 5.0-10.0 Final [facility] 10*3/uL [facility] L ab (Internal) : [address] ? ? BLD Low Rbc 3.21 10*6/uL 4.10-5.30 Final N orth 10*6/uL [facility] L ab (Internal) : [address] t ? ? BLD Low Hgb 11.4 g/dL 12.0-16.0 Final Nort h g/dL [facility] L ab (Internal) : [address] t ? ? BLD Low Hct 35.3 % 37.0-47.0 Final [facility] % [facility] L ab (Internal) : [address] t ? ? BLD High Mcv 110.0 fL 80.0-96.[address] [facility] L ab (Internal) : [address] t ? ? BLD High Mch 35.5 pg 26.0-32.[address] [facility] [address] [facility] L ab (Internal) : [address] t ? ? BLD - Mchc 32.3 g/dL 31.0-35.0 Final Nort h g/dL [facility] L ab (Internal) : [address] ? ? BLD - Rdw 13.8 % 11.5-14.5 Final [facility] (Internal[facility] : [address] ? ? BLD - Plt 289 10*3/uL 130-450 Final Nort h 10*3/uL [facility] L [facility] (Internal) : [address] ? ? BLD - Anc 3.13 10*3/uL ? Final Nort h [facility] L ab (Internal) : [address] 02/09/2019 BMP, Serum S High g/r 108 mg/dL 74-106 Final North or Plasma mg/dL [facility] L ab (Internal) : [address] ? ? S High Bun 30 mg/dL 7-17 Final North mg/dL [facility] L ab (Internal) : [address] ? ? S - Crea 1.00 mg/dL 0.52-1.04 Final Nor th mg/dL [facility] L ab (Internal) : [address] ? ? S - Ca 9.5 mg/dL 8.4-10.2 Final [facility] mg/dL [facility] L [facility] (Internal) : [address] ? ? S - Na 138 mmol/L 137-145 Final North mmol/L [facility] L ab (Internal) : [address] ? ? S - K 4.2 mmol/L 3.5-5.1 Final North mmol/L [facility] L ab (Internal) : [address] ? ? S - Cl 105 mmol/L 98-107 Final North mmol/L [facility] L ab (Internal) : [address] ? ? S - Tco2 30.0 mmol/L 22.0-30.0 Final No rth mmol/L [facility] L ab (Internal) : [address] 02/06/2019 Cbc BLD - Wbc 7.6 10*3/uL 5.0-10.0 Final [facility] 10*3/uL [facility] L [facility] (Internal) : [address] ? ? BLD Low Rbc 3.45 10*6/uL 4.10-5.30 Final N orth 10*6/uL [facility] L ab (Internal) : [address] ? ? BLD - Hgb 12.2 g/dL 12.0-16.0 Final Nort h g/dL [facility] L ab (Internal) : [address] ? ? BLD - Hct 38.0 % 37.0-47.0 Final North % [facility] L ab (Internal) : [address] ? ? BLD High Mcv 110.1 fL 80.0-96.[address] [facility] L ab (Internal) : [address] ? ? BLD High Mch 35.4 pg 26.0-32.[address] [facility] [address] [facility] L ab (Internal) : [address] ? ? BLD - Mchc 32.1 g/dL 31.0-35.0 Final Nort h g/dL [facility] L ab (Internal) : [address] ? ? BLD - Rdw 13.8 % 11.5-14.5 Final North [facility] L ab (Internal) : [address] ? ? BLD - Plt 268 10*3/uL 130-450 Final Nort h 10*3/uL [facility] L ab (Internal) : [address] ? ? BLD - Anc 3.90 10*3/uL ? Final Nort h [facility] L ab (Internal) : [address] 02/06/2019 BMP, Serum S High g/r 108 mg/dL 74-106 Final North or Plasma mg/dL [facility] L ab (Internal) : [address] ? ? S High Bun 40 mg/dL 7-17 Final North mg/dL [facility] L ab (Internal) : [address] ? ? S High Crea 1.70 mg/dL 0.52-1.04 Final Nor th mg/dL [facility] L ab (Internal) : [address] ? ? S - Ca 9.2 mg/dL 8.4-10.2 Final North mg/dL [facility] L ab (Internal) : [address] ? ? S - Na 138 mmol/L 137-145 Final [facility] mmol/L [facility] L ab (Internal) : [address] ? ? S - K 3.5 mmol/L 3.5-5.1 Final North mmol/L [facility] L ab (Internal) : [address] t ? ? S - Cl 104 mmol/L 98-107 Final [facility] mmol/L [facility] L ab (Internal) : [address] t ? ? S - Tco2 27.0 mmol/L 22.0-30.0 Final No rth mmol/L [facility] L ab (Internal) : [address] 02/04/2019 Hepatic S - Tbil 0.6 mg/dL 0.2-1.3 Final N orth Function mg/dL [facility] L ab Serum (Internal) : [address] ? ? S High Dbil 0.5 mg/dL 0.0-0.3 Final [facility] mg/dL [facility] L ab (Internal) : [address] t ? ? S High Alp 165 U/L 38-126 Final North U/L [facility] L ab (Internal) : [address] ? ? S - Alt 22 U/L 9-52 U/L Final [facility] (Sgpt) [facility] L ab (Internal) : [address] t ? ? S - Ast 28 U/L 14-36 U/L Final [facility] (Sgot) [facility] L ab (Internal) : [address] t ? ? S High Ggt 172 U/L 12-43 U/L Final [facility] Hospital L ab (Internal) : [address] t ? ? S - Tp 6.7 g/dL 6.3-8.2 Final North g/dL [facility] L ab (Internal) : [address] t ? ? S Low Alb 3.3 g/dL 3.5-5.0 Final [facility] g/dL [facility] L ab (Internal) : [address] 02/03/2019 Cbc BLD - Wbc 8.0 10*3/uL 5.0-10.0 Final [facility] 10*3/uL [facility] L [facility] (Internal) : [address] t ? ? BLD Low Rbc 3.47 10*6/uL 4.10-5.30 Final N orth 10*6/uL [facility] L ab (Internal) : [address] ? ? BLD - Hgb 12.4 g/dL 12.0-16.0 Final Nort h g/dL [facility] L ab (Internal) : [address] ? ? BLD - Hct 37.8 % 37.0-47.0 Final [facility] L ab (Internal) : [address] ? ? BLD High Mcv 108.9 fL 80.0-96.0 Final [facility] Hospital L ab (Internal) : [address] ? ? BLD High Mch 35.7 pg 26.0-32.[address] [facility] L ab (Internal) : [address] ? ? BLD - Mchc 32.8 g/dL 31.0-35.0 Final Nort h g/dL [facility] L ab (Internal) : [address] ? ? BLD - Rdw 13.6 % 11.5-14.5 Final [facility] L ab (Internal) : [address] ? ? BLD - Plt 263 10*3/uL 130-450 Final Nort h 10*3/uL [facility] L ab (Internal) : [address] ? ? BLD - Anc 4.61 10*3/uL ? Final Nort h [facility] L ab (Internal) : [address] 02/03/2019 BMP, Serum S - g/r 105 mg/dL 74-106 Final North or Plasma mg/dL [facility] L ab (Internal) : [address] ? ? S High Bun 25 mg/dL 7-17 Final North mg/dL [facility] L ab (Internal) : [address] ? ? S High Crea 1.20 mg/dL 0.52-1.04 Final Nor th mg/dL [facility] L ab (Internal) : [address] t ? ? S - Ca 9.4 mg/dL 8.4-10.2 Final [facility] mg/dL [facility] (Internal) : [address] ? ? S - Na 142 mmol/L 137-145 Final North mmol/L [facility] L ab (Internal) : [address] ? ? S Low K 3.4 mmol/L 3.5-5.1 Final North mmol/L [facility] L ab (Internal) : [address] ? ? S - Cl 106 mmol/L 98-107 Final North mmol/L [facility] L ab (Internal) : [address] ? ? S - Tco2 28.0 mmol/L 22.0-30.0 Final No rth mmol/L [facility] L ab (Internal) : [address] 02/03/2019 Thyroid S - Tsh 3.97 u[IU]/mL 0.47-4.68 Fi nal [place], u[IU]/mL Countr Serum Hospital L ab (Internal) : [address] 02/03/2019 Hepatic S - Tbil 0.7 mg/dL 0.2-1.3 Final N orth Function mg/dL [facility] L ab Serum (Internal) : [address] ? ? S High Dbil 0.6 mg/dL 0.0-0.3 Final North mg/dL [facility] L ab (Internal) : [address] t ? ? S High Alp 165 U/L 38-126 Final North U/L [facility] L ab (Internal) : [address] ? ? S - Alt 21 U/L 9-52 U/L Final [facility] (Sgpt) [facility] L ab (Internal) : [address] ? ? S - Ast 29 U/L 14-36 U/L Final [facility] (Sgot) [facility] L ab (Internal) : [address] t ? ? S High Ggt 177 U/L 12-43 U/L Final [facility] Hospital L ab (Internal) : [address] ? ? S - Tp 6.4 g/dL 6.3-8.2 Final [facility] g/dL [facility] L ab (Internal) : [address] ? ? S Low Alb 3.3 g/dL 3.5-5.0 Final North g/dL [facility] L ab (Internal) : [address] 02/01/2019 CBC W/ Auto BLD High Wbc 11.6 10*3/uL 5.0-10.0 Final North Diff 10*3/uL [facility] L ab (Internal) : [address] ? ? BLD Low Rbc 3.69 10*6/uL 4.10-5.30 Final N orth 10*6/uL [facility] L ab (Internal) : [address] ? ? BLD - Hgb 13.2 g/dL 12.0-16.0 Final Nort h g/dL [facility] L ab (Internal) : [address] ? ? BLD - Hct 41.0 % 37.0-47.0 Final [facility] Hospital L ab (Internal) : [address] ? ? BLD High Mcv 111.1 fL 80.0-96.0 Final [facility] Hospital L ab (Internal) : [address] ? ? BLD High Mch 35.8 pg 26.0-32.[address] [facility] L ab (Internal) : [address] ? ? BLD - Mchc 32.2 g/dL 31.0-35.0 Final Nort h g/dL [facility] (Internal) : [address] ? ? BLD - Rdw 13.6 % 11.5-14.5 Final [facility] (Internal) : [address] gadiel ? ? BLD - Plt 331 10*3/uL 130-450 Final Nort h 10*3/uL [facility] (Internal) : [address] t ? ? BLD - Anc 8.97 10*3/uL ? Final Nort h [facility] (Internal) : [address] t ? ? BLD High Neutro 77.4 % 40.0-75.0 Final [facility] (Internal) : [address], [place] ? ? BLD Low Lymph 10.9 % 20.0-50.0 Final [facility] (Internal) : [address] t ? ? BLD - Kershaw 8.5 % 2.0-10.0 Final Diamond % [facility] (Internal) : [address] t ? ? BLD - Eos 1.7 % 1.0-6.0 % Final [facility] (Internal) : [address] t ? ? BLD - Baso 0.8 % 0.0-1.0 % Final [facility] (Internal) : [address] t ? ? BLD - Ig 0.7 % 0.0-0.9 % Final [facility] (Internal) : [address] t 02/01/2019 RBC BLD - Macro small ? Final [facility] Morphology, Count Blood Hospital L [facility] (Internal) : [address] t 02/01/2019 BMP, Serum S - g/r 100 mg/dL 74-106 Final North or Plasma mg/dL [facility] (Internal) : [address] t ? ? S High Bun 27 mg/dL 7-17 Final North mg/dL [facility] (Internal) : [address] t ? ? S High Crea 1.10 mg/dL 0.52-1.04 Final Nor th mg/dL [facility] (Internal) : [address] t ? ? S - Ca 10.0 mg/dL 8.4-10.2 Final Nort h mg/dL [facility] (Internal) : [address] t ? ? S - Na 143 mmol/L 137-145 Final North mmol/L [facility] (Internal) : [address] t ? ? S - K 3.5 mmol/L 3.5-5.1 Final North mmol/L [facility] (Internal) : [address] t ? ? S - Cl 107 mmol/L 98-107 Final North mmol/L [facility] (Internal) : [address] t ? ? S - Tco2 24.0 mmol/L 22.0-30.0 Final No rth mmol/L [facility] : [address] 01/27/2019 CBC W/ Auto BLD High Wbc 12.8 10*3/uL 5.0-10.0 Final North Diff 10*3/uL [facility] ([facility]) : [address] gadiel ? ? BLD Low Rbc 3.65 10*6/uL 4.10-5.30 Final N orth 10*6/uL [facility] ([facility]) : [address] gaidel ? ? BLD - Hgb 12.9 g/dL 12.0-16.0 Final Nort h g/dL [facility] (Internal) : [address] ? ? BLD - Hct 39.7 % 37.0-47.0 Final [facility] (Internal) : [address] ? ? BLD High Mcv 108.8 fL 80.0-96.0 Final [facility] (Internal) : [address] ? ? BLD High Mch 35.3 pg 26.0-32.[address] [facility] (Internal) : [address] ? ? BLD - Mchc 32.5 g/dL 31.0-35.0 Final Nort h g/dL [facility] (Internal) : [address] gadiel ? ? BLD - Rdw 13.7 % 11.5-14.5 Final [facility] (Internal) : [address] gadiel ? ? BLD - Plt 301 10*3/uL 130-450 Final Nort h 10*3/uL [facility] ([facility]) : [address] ? ? BLD - Anc 8.96 10*3/uL ? Final Nort h [facility] (Internal) : [address] ? ? BLD - Neutro 70.0 % 40.0-75.0 Final [facility] (Internal) : [address], [place] ? ? BLD Low Lymph 13.8 % 20.0-50.0 Final [facility] (Internal) : [address] t ? ? BLD High Kershaw 12.0 % 2.0-10.0 Final [facility] (Internal) : [address] t ? ? BLD - Eos 2.2 % 1.0-6.0 % Final [facility] (Internal) : [address] t ? ? BLD - Baso 0.6 % 0.0-1.0 % Final [facility] (Internal) : [address] t ? ? BLD High Ig 1.4 % 0.0-0.9 % Final [facility] (Internal) : [address] t 01/27/2019 RBC BLD - Macro small ? Final [facility] Morphology, Count ry Blood Hospital L [facility] (Internal) : [address] t 01/27/2019 CMP, Serum S - g/r 89 mg/dL 74-106 Final North or Plasma mg/dL [facility] (Internal) : [address] t ? ? S High Bun 33 mg/dL 7-17 Final North mg/dL [facility] (Internal) : [address] t ? ? S High Crea 1.20 mg/dL 0.52-1.04 Final Nor th mg/dL [facility] (Internal) : [address] t ? ? S - Ca 9.6 mg/dL 8.4-10.2 Final North mg/dL [facility] (Internal) : [address] t ? ? S - Na 140 mmol/L 137-145 Final North mmol/L [facility] (Internal) : [address] ? ? S Low K 3.4 mmol/L 3.5-5.1 Final [facility] mmol/L [facility] (Internal) : [address] t ? ? S - Cl 105 mmol/L 98-107 Final [facility] mmol/L [facility] (Internal) : [address] ? ? S - Tco2 22.0 mmol/L 22.0-30.0 Final No rth mmol/L [facility] ([facility]) : [address] t ? ? S - Tp 7.5 g/dL 6.3-8.2 Final [facility] g/dL [facility] (Internal) : [address] t ? ? S - Alb 3.8 g/dL 3.5-5.0 Final [facility] g/dL [facility] (Internal) : [address] ? ? S - Tbil 1.2 mg/dL 0.2-1.3 Final [facility] mg/dL [facility] (Internal) : [address] ? ? S High Alp 165 U/L 38-126 Final [facility] U/L [facility] (Internal) : [address] ? ? S - Alt 15 U/L 9-52 U/L Final [facility] (Sgpt) [facility] (Internal) : [address] t ? ? S - Ast 27 U/L 14-36 U/L Final [facility] (Sgot) [facility] (Internal) : [address] 01/27/2019 Urinalysis, UR - UA-color yellow pale Final [facility] Dipstick, yellow [facility] Micro (Internal) : [address] t ? ? UR - UA-appea clear clear Final [facility] (Internal) : [address] ? ? UR - UA-spec 1.025 1.003-1.0 Final [facility] Grav [address] [facility] (Internal) : [address] t ? ? UR - UA-pH 5.0 [pH] 4.6-8.0 Final [facility] [pH] [facility] (Internal) : [address] t ? ? UR - UA-leuk negative negative Final Nort h Est [facility] (Internal) : [address] t ? ? UR - UA-nitri negative negative Final [facility] th te [facility] ([facility]) : [address] ? ? UR ABNORMA UA-prot trace negative Final [facility] (Internal) : [address] t ? ? UR - UA-gluc negative negative [facility] ab (Internal) : [address] ? ? UR ABNORMA UA-keton 1+ negative [facility] (Internal) : [address] ? ? UR - UA-urobi normal normal Final [facility] (Internal) : [address] ? ? UR ABNORMA UA-bili small negative Final [facility] (Internal) : [address] ? ? UR - UA-blood negative negative Final [facility] (Internal) : [address] 01/27/2019 Urinalysis, UR - UA-WBC 0-3 [hpf] 0-3 [hpf] F inal [facility] Microscopic Count [facility] (Internal) : [address] ? ? UR - UA-RBC 0-2 [hpf] 0-2 [hpf] Final [facility] ab (Internal) : [address] ? ? UR ABNORMA UA-bacte few [hpf] none seen Final [facility] domi [hpf] [facility] (Internal) : [address] ? ? UR ABNORMA UA-epith few [hpf] none seen Final [facility] elial [hpf] [facility] (Internal) : [address] ? ? UR - UA-mucus none seen none seen Final N orth [hpf] [hpf] [facility] (Internal) : [address] ? ? UR - Hyaline rare [hpf] ? Final Nort h C [facility] (Internal) : [address] 01/27/2019 Culture UR - Final microbiology ? Final [facility] ([place] results [facility] Lab Urine (Internal) : [address] Past Encounters 08/27/2021 Cricket Cotton MD: [address] [place] [address], [address], [place] [address], Ph. 08/02/2021 Cricket Cotton MD: [address] [phone], Ph. 07/26/2021 Closed Fracture Proximal Femur, Subtroch anteric Cricket Cotton MD: [address] [phone], Ph. 07/20/2021 Subcapital Fracture of Neck of Femur; Co llagenous Colitis; Parkinson's Disease; Edema of Lower Extremity; Hypothyroidism; Essential Hypertension; Hyperlipidemia; Cough; Chronic Kidney Disease Stage 3; O veractive Bladder; Constipation; Gastroe sophageal Reflux Disease; Major Depressive Disorder; Insomnia; Thrombocytosis Rosibel Mehta MD: [address] [place] [phone], Ph. 07/09/2021 Subcapital Fracture of Neck of Femur; Co llagenous Colitis; Parkinson's Disease; Edema of Lower Extremity; Hypothyroidism; Essential Hypertension; Hyperlipidemia; Cough; Chronic Kidney Disease Stage 3; O veractive Bladder; Constipation; Gastroe sophageal Reflux Disease; Major Depressive Disorder; Insomnia Rosibel Mehta MD: [address] [place] [phone], Ph. 09/28/2020 Cerebrovascular Accident; Incoordination ; Stiffness of Right Shoulder; Stiffness of Joint of Right Elbow; Stiffness of Right Wrist; Muscle Weakness Ryanne Rubio, OT: [address] [place] [phone], Ph. 08/15/2020 Cerebrovascular Accident; Incoordination ; Stiffness of Right Shoulder; Stiffness of Joint of Right Elbow; Stiffness of Right Wrist; Muscle Weakness Ryanne Rubio, OT: [address] [place] [phone], Ph. 08/08/2020 Cerebrovascular Accident; Incoordination ; Stiffness of Right Shoulder; Stiffness of Joint of Right Elbow; Stiffness of Right Wrist; Muscle Weakness Ryanne Rubio, OT: [address] [place] [phone], Ph. 07/31/2020 Cerebrovascular Accident; Incoordination ; Stiffness of Right Shoulder; Stiffness of Joint of Right Elbow; Stiffness of Right Wrist; Muscle Weakness Ryanne Rubio, OT: [address] [place] [phone], Ph. 07/18/2020 Cerebrovascular Accident; Incoordination ; Stiffness of Right Shoulder; Stiffness of Joint of Right Elbow; Stiffness of Right Wrist; Muscle Weakness Ryanne Rubio, OT: [address] [place] [phone], Ph. 07/12/2020 Cerebrovascular Accident; Incoordination ; Stiffness of Right Shoulder; Stiffness of Joint of Right Elbow; Stiffness of Right Wrist; Muscle Weakness Ryanne Rubio, OT: [address] [place] [phone], Ph. 07/06/2020 Umbilical Hernia Aster Ortiz MD: [address] [place] [address], Ph. 07/05/2020 Cerebrovascular Accident; Incoordination ; Stiffness of Right Shoulder; Stiffness of Joint of Right Elbow; Stiffness of Right Wrist; Muscle Weakness Ryanne Rubio, OT: [address] [place] [phone], Ph. 06/21/2020 Cerebrovascular Accident; Incoordination ; Stiffness of Right Shoulder; Stiffness of Joint of Right Elbow; Stiffness of Right Wrist; Muscle Weakness Ryanne Rubio, OT: [address] [place] [phone], Ph. 06/01/2020 Umbilical Hernia Aster Ortiz MD: [address] [place] [address], Ph. Social History Tobacco Smoking Status Never Smoker Vaccine List Vaccine Type COVID-19, mRNA, LNP-S, PF, 100 mcg/0.5 m L dose (Moderna) 10/20/2020 11/08/2020 Influenza vaccine, quadrivalent, adjuvan radha 07/03/2021?1 mL Plan of Care Reminders Provider Appointments None ? ? recorded. Lab None ? ? recorded. Referral None ? ? recorded. Procedures None ? ? recorded. Surgeries None ? ? recorded. Imaging None ? ? recorded. Vitals 08/27/2021 01:30PM Follow Up 30 Weight 57.79 kg 08/02/2021 11:15AM Follow Up 15 Weight 58.06 kg 07/26/2021 11:15AM Post Op 15 Weight 59.38 kg 07/20/2021 08:34AM [facility] 40 Weight Blood Pressure 57.61 kg 118/74 mm[Hg] 07/09/2021 01:43PM [facility] 40 Weight Blood Pressure 57.61 kg 118/68 mm[Hg] 07/06/2020 10:00AM Office 15 Height Weight BMI Blood Pressure 160.02 cm 63.05 kg 24.6 kg/m2 124/74 mm[Hg] 06/01/2020 01:00PM Office 15 Height Weight BMI Blood Pressure 160.02 cm 63.28 kg 24.7 kg/m2 130/78 mm[Hg] 08/18/2019 03:30PM Acute 30 Height Weight BMI 160.02 cm 65.77 kg 25.7 kg/m2 08/18/2019 10:00AM Office 15 Height Blood Pressure 160.02 cm 136/84 mm[Hg] 07/12/2019 Weight 57.42 kg 02/24/2019 11:00AM [facility] 40 Height Weight BMI Blood Pressure 160.02 cm 59.56 kg 23.3 kg/m2 120/74 mm[Hg] 02/17/2019 11:20AM [facility] 20 Height Weight BMI Blood Pressure 160.02 cm 59.65 kg 23.3 kg/m2 172/70 mm[Hg] 12/10/2017 Height Blood Pressure 160.02 cm 152/98 mm[Hg] 12/10/2017 Weight 60.33 kg
== END 2021-11-29 18:37 | disposition home or self-care (01) ==
LOC: NCHCN 18:36
PROVIDERS: PCP Internal Medicine; Visit Provider Internal Medicine
DX: C44.622 Squamous cell carcinoma of skin of right upper limb, including shoulder (principal)
CPT/HCPCS: 88305

== ENCOUNTER → 2022-02-28 12:56 | Outpatient (BNVA) | payer MEDICARE, SELFPAY | PROVIDERS: PCP Internal Medicine; Referring Provider Internal Medicine; Visit Provider Psychiatry & Neurology Neurology | DX: Z86.73 Personal history of transient ischemic attack (TIA), and cerebral infarction without residual deficits (principal); D75.839 Thrombocytosis, unspecified; Z79.82 Long term (current) use of aspirin; I12.9 Hypertensive chronic kidney disease with stage 1 through stage 4 chronic kidney disease, or unspecified chronic kidney disease; N18.9 Chronic kidney disease, unspecified; G20 Parkinson's disease; F41.9 Anxiety disorder, unspecified; R41.3 Other amnesia | CPT/HCPCS: 99214 ==

== ENCOUNTER → 2022-05-30 11:13 | Outpatient (BNVA) | payer MEDICARE, SELFPAY | PROVIDERS: PCP Internal Medicine; Referring Provider Internal Medicine; Visit Provider Psychiatry & Neurology Neurology | DX: G20 Parkinson's disease (principal); Z86.73 Personal history of transient ischemic attack (TIA), and cerebral infarction without residual deficits; Z79.82 Long term (current) use of aspirin; F41.9 Anxiety disorder, unspecified; R41.3 Other amnesia; Z87.81 Personal history of (healed) traumatic fracture | CPT/HCPCS: 99214 ==

== ENCOUNTER → 2022-07-04 07:11 | Outpatient (BNVA) | payer MEDICARE, SELFPAY | PROVIDERS: PCP Internal Medicine; Referring Provider Internal Medicine; Visit Provider Psychiatry & Neurology Neurology | DX: Z86.73 Personal history of transient ischemic attack (TIA), and cerebral infarction without residual deficits (principal); Z79.82 Long term (current) use of aspirin; I10 Essential (primary) hypertension; G20 Parkinson's disease; R41.3 Other amnesia; F41.9 Anxiety disorder, unspecified | CPT/HCPCS: 99214 ==

== ENCOUNTER → 2022-09-23 13:20 | Outpatient (BNVA) | payer MEDICARE, SELFPAY | PROVIDERS: PCP Internal Medicine; Referring Provider Internal Medicine; Visit Provider Psychiatry & Neurology Neurology | DX: Z86.73 Personal history of transient ischemic attack (TIA), and cerebral infarction without residual deficits (principal); Z79.82 Long term (current) use of aspirin; D75.839 Thrombocytosis, unspecified; I12.9 Hypertensive chronic kidney disease with stage 1 through stage 4 chronic kidney disease, or unspecified chronic kidney disease; N18.9 Chronic kidney disease, unspecified; G20 Parkinson's disease; R41.3 Other amnesia; F41.9 Anxiety disorder, unspecified | CPT/HCPCS: 99214 ==

== ENCOUNTER 2022-11-20 13:54 | Outpatient (REF) | payer MEDICARE, MEDICAID, SELFPAY ==
--- NOTE | 2022-11-20 12:00 | SKI_PTH ---
PATIENT: Astrid Baker LOC: [facility]#:[id number] AGE/SX: 87/F ROOM: RE11/20/[address]: Anshul Branch : 1935 BED: DIS: 11/20/2022 SPEC #: [id number] RECD: 11/21/22 12:49 STATUS: BRIDGET TRIMBLE #: [id number] DAVIDA: 11/20/22 12:[address]: Anshul Branch DEPT: Surgical Specimen RECD BY: Shelby Nascimento Tissues: 1 - SKIN CYST/TAG/DEBRIDEMENT Procedures: SKIN LEVEL 4 Comments: [id number]
== END 2022-11-20 13:55 | disposition home or self-care (01) ==
LOC: NCHCN 13:54
PROVIDERS: PCP Internal Medicine; Visit Provider Internal Medicine
DX: C44.629 Squamous cell carcinoma of skin of left upper limb, including shoulder (principal)
CPT/HCPCS: 88304; 88305

== ENCOUNTER 2022-11-28 12:41 | Outpatient (CLI) | payer MEDICARE, MEDICAID, SELFPAY ==
[2022-11-28 08:44] LABS: Abs Immature Grans 0.03 10^3/uL (0.0-0.06); Absolute Eosinophil Count 0.35 10^3/uL (0.0-0.7); Absolute Lymphocyte Count 1.68 10^3/uL (1.2-3.4); Absolute Monocyte Count 0.62 10^3/uL (0.1-0.8); Absolute Neutrophil Count 6.62 10^3/uL (1.2-6.7); Basophils % 1.1; Eosinophils % 3.7; HCT 35.9 % (36.0-46.0); Immature Grans % 0.3; Lymphocytes % 17.9; MCHC 33.4 % (32.0-36.0); MCV 117 fL (80-95); MPV 9.1 fL (8.0-11.0); Monocytes % 6.6; Neutrophils % 70.4; Platelet Count 255 10^3/uL (130-400); RBC 3.08 10^6/uL (3.93-5.22); RDW 14.4 % (11.7-14.6); RDW-SD 62.1 fL
[2022-11-28 09:04] LABS: ALT 10 U/L (14-59); AST 15 U/L (15-37); Albumin 3.5 g/dL (3.4-5.0); Alkaline Phosphatase 72 U/L (46-116); Anion Gap 7.9 mmol/L (3-11); BUN 27 mg/dL (7-18); Bilirubin, Total 0.7 mg/dL (0.2-1.0); CO2 28.1 mmol/L (21.0-32.0); CREATININE 0.9 mg/dL (0.55-1.02); Calcium 9.3 mg/dL (8.5-10.1); Chloride 107 mmol/L (98-107); Estimated GFR 62.65 (mL/min/1.73m2); Glucose 117 mg/dL (74-106); Sodium 143 mmol/L (136-145); Total Protein 7.1 g/dL (6.4-8.2)
== END 2022-11-28 12:42 | disposition home or self-care (01) ==
LOC: LBO 12:43
PROVIDERS: PCP Internal Medicine; Visit Provider Internal Medicine Hematology & Oncology
DX: D47.3 Essential (hemorrhagic) thrombocythemia (principal)
CPT/HCPCS: 36415; 80053; 85025

== ENCOUNTER → 2023-01-22 09:56 | Outpatient (BNVA) | payer MEDICARE, MEDICAID, SELFPAY | PROVIDERS: PCP Internal Medicine; Visit Provider Psychiatry & Neurology Neurology | DX: Z86.73 Personal history of transient ischemic attack (TIA), and cerebral infarction without residual deficits (principal); F39 Unspecified mood [affective] disorder; R26.89 Other abnormalities of gait and mobility; I12.9 Hypertensive chronic kidney disease with stage 1 through stage 4 chronic kidney disease, or unspecified chronic kidney disease; N18.9 Chronic kidney disease, unspecified; G20 Parkinson's disease; F41.9 Anxiety disorder, unspecified; R41.3 Other amnesia | CPT/HCPCS: 99214 ==

== ENCOUNTER → 2023-03-20 13:14 | Outpatient (BNVA) | payer MEDICARE, MEDICAID, SELFPAY | PROVIDERS: PCP Internal Medicine; Referring Provider Internal Medicine; Visit Provider Psychiatry & Neurology Neurology | DX: G20 Parkinson's disease (principal); R41.3 Other amnesia; Z86.73 Personal history of transient ischemic attack (TIA), and cerebral infarction without residual deficits; D75.839 Thrombocytosis, unspecified; I12.9 Hypertensive chronic kidney disease with stage 1 through stage 4 chronic kidney disease, or unspecified chronic kidney disease; N18.9 Chronic kidney disease, unspecified | CPT/HCPCS: 99214 ==

== ENCOUNTER → 2023-07-21 00:47 | Outpatient (CLI) | payer MEDICARE, MEDICAID, SELFPAY ==
--- NOTE | 2023-07-21 07:30 | DI.RAD_ITS ---
Exam(s) RF MODIFIED SPEECH BA SWALLOW TECHNIQUE: Modified barium swallow was performed in conjunction with speech pathology. CONTRAST MATERIAL: Oral barium contrast was administered. COMPARISON: No exams were available for comparison FINDINGS: Note that this is not a dedicated esophagram, distal esophagus not evaluated. There is no evidence of aspiration or penetration of thick or thin liquids, barium pudding, or barium coated cookies. Speech pathology report to follow. IMPRESSION: No evidence of aspiration or penetration. RADIATION DOSE DELIVERED: deya Gage=9.08 mGy
--- NOTE | 2023-07-21 08:23 | ST.MBS_ITS ---
Date of Service Date of service: 07/21/23 Time of Service: 09:00 Modified Barium Swallow Study Findings: Video fluoroscopic Swallowing Evaluation (VFSE) / Modified Barium Swallow Study (MBSS) Speech Language Pathology Report Patient referred for VFSE/MBSS from Jayde Mckeon NP, given complaints of food sticking in throat - primarily soft foods like mac and cheese and mashed potatoes. HPI & Patient report of function: Patient is an 87 year old female with PMH significant for hx CVA in August 2015 s/p tPA administration with complete resolution of symptoms and Parkinsonism (currently on Sinemet, unclear if primary or secondary Parkinsons per neuro notes). She was seen by ENT on 07/09/23 for a multitude of complaints, including sensation of soft foods sticking. She reports symptoms have been ongoing for several months to year- though does not feel symptoms are worsening. When food sticks, she usually 'gives it time' or drinks water and it dissipates. She denies issues with drinking/taking pills or history of pneumonia or unintended weight loss. PMHx: Per medical record Actinic keratosis Anxiety disorder Arthritis At high risk for falls Basal cell carcinoma Cerebrovascular accident Chronic cough Chronic kidney disease, stage 3 Collagenous colitis COVID-19 Cutaneous horn Degenerative joint disease (DJD) of lumbar spine Delirium, acute Depressive disorder Diarrhea Easy bruising Fatigue GERD (gastroesophageal reflux disease) Hand muscle weakness Hemiparesis affecting right side as late effect of cerebrovascular accident Hypertension Hypokalemia Hypothyroidism Inflammatory polyarthropathy Lewy body dementia Lumbar radiculopathy, right Macular degeneration Mucositis (ulcerative) due to antineoplastic therapy Osteoarthritis of left knee Osteoporosis Overactive bladder Rheumatoid arthritis Rhinitis, allergic Risk for falls S/P right hip fracture Thrombocytosis Trochanteric bursitis of right hip Umbilical hernia Wedge compression fracture of unspecified lumbar vertebra, initial encounter for closed fracture Previous Imaging: Flexible nasolaryngoscopy 07/09/23 was within normal limits. IMPRESSIONS: Astrid presents with within functional limits swallow function. Findings are consistent with presbyphagia/age related changes. There is mild oropharyngeal weakness characterized by slowed/prolonged chewing, with intermittent lingual hesitation/delay in oral transport, and mildly reduced BOT retraction/pharyngeal constriction. This results in trace oral retention (cleared with spontaneous repeat swallows) and more significant valecullar retention, occupying at least 50% of the vallecular space with solids (pudding, nikunj cracker). Sensation of residue is intact, and it is spontaneously cleared with repeat swallows and/or liquid wash. At end of study, results reviewed with patient, with review of standard swallow strategies as outlined below. No further ST indicated in light of WFL findings. Patient verbalized feeling 'relieved it's normal' and felt she could manage symptoms with strategies she is already implementing. She was encouraged to request re-referral to [facility] REPAIRER if dysphagia symptoms appear to worsen/change in the future, in the setting of dx Parkinsonism. Patient also educated re: [employer] REPA[employer] options for voice therapy/SpeakOut program, if interested in future will discuss with MD. Specialist referrals:? N/A RECOMMENDATIONS: Diet Texture Recommendation:? IDDSI LEVEL SOLIDS: 7-Regular Solids. Add extra moisture with sauces/condiments/gravy/etc. LIQUIDS 0-Thin Liquids MEDICATIONS: Whole with thin liquids Please see further details at?www.iddsi.org http://www.iddsi.org/ Risk Management Strategies:? Behavioral reflux precautions, including upright position during + 90 mins after meals. Small bites, approx [id number] Always have a drink with meals. Take a sip every few bites or as needed. Multiple swallows per bolus to encourage clearance of pharyngeal stasis/residue PLAN: Therapy:No further ST services indicated at this time. Patient in agreement to re-request [facility] [employer] REPA[facility] referral should symptoms change. Follow-up exam: N/A OBJECTIVE Videofluoroscopic Swallow Evaluation (VFSE/MBSS) was conducted in the lateral and [id number] projection by Speech-Language Pathologist, in collaboration with Radiologist, to evaluate oropharyngeal swallow function. Anatomic view under fluoroscopy: WFL PO Barium Contrast Trials Oral barium water-soluble contrast was administered as follows: IDDSI Level 0 Varibar thin liquid (40% w/v) [IDDSI Level 4 Varibar pudding/pureed/extremely thick (40% w/v)] [IDDSI Level 7 Regular Solid: 1/2 nikunj cracker coated in 3 mL Varibar pudding] MBSImP Component Scores COMPONENT Score and Description 1. 0 Lip closure (0-4) Resulted in no labial escape 2. 0 Hold Position (0-3) Maintained a cohesive bolus between tongue to palatal seal 3. 1 Bolus Preparation (0-4) Resulted in slow prolonged chewing/mashing with complete re-collection 4. 1 Bolus Transport (0-4) Demonstrated delayed initiation of tongue motion 5. 1 Oral Residue (0-4) Was a trace, lining oral structures 6. 1 Swallow Initiation (0-4) Occurred when the bolus head was in valleculae 7. 0 Soft Palate Elevation (0-4) Resulted in no bolus between soft palate and the pharyngeal wall 8. 1 Laryngeal Elevation (0-3) Was decreased with partial superior movement of thyroid cartilage/partial approximation of arytenoids to epiglottic petiole 9. 1 Anterior Hyoid Motion (0-2) Demonstrated partial anterior movement 10. 0 Epiglottic Movement (0-2) Resulted in complete inversion 11. 0 Laryngeal Closure (0-2) Was complete with no air or contrast in laryngeal vestibule 12. 1 Pharyngeal Stripping Wave (0-2) Was present, but diminished 13. 0 Pharyngeal Contraction (0-3) Was complete 14. 0 PES Opening (0-3) Was completely distended and complete duration with no obstruction of flow 15. 1 Tongue Base Retraction (0-4) Allowed a trace column of contrast or air between tongue base and pharyngeal wall 16. 2 Pharyngeal Residue (0-4) Was a collection of residue within or on p haryngeal structures 17. 2 Esophageal Clearance (0-4) Resulted in esophageal retention with retrograde flow below pharyngoesophageal segment Results COMPONENT Score and Description 1. 3 Oral Score (0-18) 2. 5 Pharyngeal Score (0-29) 3. 2 Esophageal Score (0-4) Penetration-Aspiration Scale COMPONENT Score and Description 1. 1 Thin liquid (1-8) Contrast did not enter the airway 2. 1 [place] thick (1-8) Contrast did not enter the airway 3. 1 Honey thick (1-8) Contrast did not enter the airway 4. 1 Pudding thick (1-8) Contrast did not enter the airway 5. 1 Cookie (1-8) Contrast did not enter the airway Trialed Compensatory Strategies & Outcome: Maneuvers Successful (+) Unsuccessful (-) Postures Successful (+) Unsuccessful (-) 3 second Preparatory Set? ? Chin Tuck Posture? ? Cough? ? Posterior Head tilt? Reflexive? Cued? Throat Clear? ? Head Tilt to? Reflexive? Left? Cued? Right? ? Saliva swallow? ? Head Turn/Rotate to? ? Supraglottic Swallow? Left? ? Super-supraglottic Swallow? Right? ? Bolus Modifications Successful (+) Unsuccessful (-) Delivery/Alternating Consistencies ? Follow with Liquid Wash + ? Follow with Solid Bolus? Delivery/Via Straw? ? Reduced Volume? ? Reduced Rate of Intake? ? Increased Viscosity? ? Other:?? ? Thank you for allowing us to take part in this patient's care. Please feel free to contact the [facility] Speech Language Pathology Department with any questions/concerns. Coding CPT Codes MOTION FLUOROSCOPY/SWALLOW - [id number] ([id number])
[2023-07-21] MEDS: Barium Sulfate 81% w/w for Oral Suspension 148 GM BTL 105 GM PO (09:54)
[2023-07-21] MEDS: Barium Sulfate Oral Paste 40% W/V 230 ML TUBE 60 ML PO (09:55)
[2023-07-21] MEDS: Barium Sulfate 40% W/V 240 ML BTL 60 ML PO (09:56)
== END ==
PROVIDERS: PCP Internal Medicine; Visit Provider Registered Nurse Maternal Newborn
DX: R09.A2 Foreign body sensation, throat (principal); R13.10 Dysphagia, unspecified
CPT/HCPCS: 92526; 92611; 74221

== ENCOUNTER → 2023-07-22 11:10 | Outpatient (BNVA) | payer MEDICARE, MEDICAID, SELFPAY | PROVIDERS: PCP Internal Medicine; Visit Provider Psychiatry & Neurology Neurology | DX: G20.A1 Parkinson's disease without dyskinesia, without mention of fluctuations (principal); R44.0 Auditory hallucinations; R41.3 Other amnesia; Z86.73 Personal history of transient ischemic attack (TIA), and cerebral infarction without residual deficits; I12.9 Hypertensive chronic kidney disease with stage 1 through stage 4 chronic kidney disease, or unspecified chronic kidney disease; N18.9 Chronic kidney disease, unspecified | CPT/HCPCS: 99214 ==

== ENCOUNTER 2024-01-16 14:46 | Outpatient (REF) | payer MEDICARE, MEDICAID, SELFPAY ==
[2024-01-16 19:14] LABS: ESR 12 mm/hr (0-30)
[2024-01-16 19:15] LABS: HCT 37.1 % (36.0-46.0); HGB 12.7 g/dL (11.2-15.7); MCH 38.8 pg (27.0-33.0); MCHC 34.2 % (32.0-36.0); MCV 114 fL (80-95); MPV 9.8 fL (8.0-11.0); Platelet Count 383 10^3/uL (130-400); RBC 3.27 10^6/uL (3.93-5.22); RDW 13.8 % (11.7-14.6); RDW-SD 58.3 fL; WBC 8.41 10^3/uL (4.4-10.8)
[2024-01-16 19:44] LABS: ALT 13 U/L (14-59); AST 29 U/L (15-37); Albumin 3.8 g/dL (3.4-5.0); Alkaline Phosphatase 67 U/L (46-116); Anion Gap 8.6 mmol/L (3-11); BUN 29 mg/dL (7-18); Bilirubin, Total 0.7 mg/dL (0.2-1.0); CO2 27.4 mmol/L (21.0-32.0); CREATININE 1.2 mg/dL (0.55-1.02); Calcium 8.7 mg/dL (8.5-10.1); Chloride 104 mmol/L (98-107); Estimated GFR 44.08 (mL/min/1.73m2); Glucose 126 mg/dL (74-106); Potassium 3.9 mmol/L (3.5-5.1); Sodium 140 mmol/L (136-145); TSH 1.49 uIU/Ml (0.36-3.74); Total Protein 7.6 g/dL (6.4-8.2)
[2024-01-16 19:46] LABS: C-Reactive Protein < 0.50 mg/dL (<or=0.5)
== END 2024-01-16 14:47 | disposition home or self-care (01) ==
LOC: NCHCN 14:46
PROVIDERS: PCP Internal Medicine; Visit Provider Internal Medicine
DX: F33.8 Other recurrent depressive disorders (principal); D47.3 Essential (hemorrhagic) thrombocythemia; G43.909 Migraine, unspecified, not intractable, without status migrainosus
CPT/HCPCS: 80053; 85027; 85652; 84443; 86140

== ENCOUNTER → 2024-01-20 11:08 | Outpatient (BNVA) | payer MEDICARE, MEDICAID, SELFPAY | PROVIDERS: PCP Internal Medicine; Referring Provider Internal Medicine; Visit Provider Psychiatry & Neurology Neurology | DX: I63.9 Cerebral infarction, unspecified (principal); R41.3 Other amnesia | CPT/HCPCS: 99213 ==

== ENCOUNTER → 2024-02-24 10:38 | Outpatient (BNVA) | payer MEDICARE, MEDICAID, SELFPAY | PROVIDERS: PCP Internal Medicine; Referring Provider Internal Medicine; Visit Provider Psychiatry & Neurology Neurology | DX: I63.9 Cerebral infarction, unspecified (principal); R41.3 Other amnesia | CPT/HCPCS: 99213 ==

== ENCOUNTER → 2024-08-24 09:31 | Outpatient (BNVA) | payer MEDICARE, MEDICAID, SELFPAY | PROVIDERS: PCP Internal Medicine; Referring Provider Internal Medicine; Visit Provider Psychiatry & Neurology Neurology | DX: R25.2 Cramp and spasm; I63.9 Cerebral infarction, unspecified | CPT/HCPCS: 99214 ==

== ENCOUNTER 2024-08-27 11:14 | Outpatient (REF) | payer MEDICARE, MEDICAID, SELFPAY ==
[2024-08-27 19:17] LABS: Anion Gap 9.1 mmol/L (3-11); BUN 30 mg/dL (7-18); CO2 28.9 mmol/L (21.0-32.0); CREATININE 1.3 mg/dL (0.55-1.02); Calcium 9.6 mg/dL (8.5-10.1); Chloride 103 mmol/L (98-107); Glucose 120 mg/dL (74-106); Magnesium 2.2 mg/dL (1.8-2.4); Potassium 4.2 mmol/L (3.5-5.1); Sodium 141 mmol/L (136-145); TSH 2.82 uIU/mL (0.36-3.74)
== END 2024-08-27 11:15 | disposition home or self-care (01) ==
LOC: NCHCN 11:14
PROVIDERS: PCP Internal Medicine; Visit Provider Internal Medicine
DX: E03.9 Hypothyroidism, unspecified (principal); E87.6 Hypokalemia
CPT/HCPCS: 80048; 83735; 84443

== ENCOUNTER → 2024-11-22 09:45 | Outpatient (BNVA) | payer MEDICARE, MEDICAID, SELFPAY | PROVIDERS: PCP Internal Medicine; Referring Provider Internal Medicine; Visit Provider Psychiatry & Neurology Neurology | DX: G20.C Parkinsonism, unspecified (principal); I63.9 Cerebral infarction, unspecified; R41.3 Other amnesia | CPT/HCPCS: 99214 ==

== ENCOUNTER 2025-04-22 11:43 | Outpatient (REF) | payer MEDICARE, MEDICAID, SELFPAY ==
--- NOTE | 2025-04-22 13:30 | SKI_PTH ---
PATIENT: Astrid Baker LOC: [facility] U#:[id number] AGE/SX: 89/F ROOM: RE04/22/[address]: Vince Hanley DO : 1935 BED: DIS: 04/22/2025 SPEC #: [id number] RECD: 04/25/25 12:11 STATUS: BRIDGET REQ #: [id number] DAVIDA: 04/22/25 13:[address]: Vince Hanley DEPT: Surgical Specimen RECD BY: Shelby Nascimento ENTERED: 04/25/25 12:11 SP TYPE: SKI OTHR DR: Anshul Branch Tissues: 1 - SKIN BIOPSY(SHAVE/PUNCH) Procedures: SKIN LEVEL 4 Comments: [id number]
== END 2025-04-22 11:44 | disposition home or self-care (01) ==
LOC: LBN 11:43
PROVIDERS: PCP Internal Medicine; Visit Provider Otolaryngology Otolaryngology/Facial Plastic Surgery
DX: D04.61 Carcinoma in situ of skin of right upper limb, including shoulder (principal)
CPT/HCPCS: 88305

== ENCOUNTER 2025-07-08 15:37 | Outpatient (REF) | payer MEDICARE, MEDICAID, SELFPAY ==
[2025-07-08 19:53] LABS: Anion Gap 12.1 mmol/L (3-11); BUN 27 mg/dL (7-18); CO2 27.9 mmol/L (21.0-32.0); Calcium 9.1 mg/dL (8.5-10.1); Chloride 103 mmol/L (98-107); Estimated GFR 33.52 (mL/min/1.73m2); Glucose 98 mg/dL (74-106); Potassium 3.5 mmol/L (3.5-5.1); Sodium 143 mmol/L (136-145)
== END 2025-07-08 15:38 | disposition home or self-care (01) ==
LOC: NCHCN 15:37
PROVIDERS: PCP Internal Medicine; Visit Provider Physician Assistant
DX: I48.91 Unspecified atrial fibrillation (principal)
CPT/HCPCS: 80048